=== PATIENT | male | born 1945 | race Caucasian/White ===

== ENCOUNTER 2017-07-01 11:00 | Inpatient (IN) ==
[2017-07-01] MEDS ORDERED: MAGNESIUM SULF RIDER 4 GM in PREMIX 1 EACH IV PRN (13:56)
[2017-07-01] MEDS ORDERED: DOCUSATE SODIUM 100 MG CAPSULE PO PRN (13:56)
[2017-07-01] MEDS ORDERED: ONDANSETRON 4 MG/2 ML VIAL IV PRN (13:56)
[2017-07-01] MEDS ORDERED: MAGNESIUM SULF RIDER 2 GM in PREMIX 1 EACH IV PRN (13:56)
[2017-07-01] MEDS ORDERED: ZALEPLON 5 MG CAPSULE PO PRN (13:56)
[2017-07-01] MEDS ORDERED: ACETAMINOPHEN 325 MG TABLET PO PRN (13:56)
--- NOTE | 2017-07-01 14:23 | EKG Report ---
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
[2017-07-01 14:34] LABS: Basophils # 0.1 10*3/uL (0.0-0.2); Basophils % 0.7 % (0.0-0.8); Eosinophils # 0.1 10*3/uL (0.0-0.87); Eosinophils % 1.9 % (0.00-10.9); Hematocrit 48.9 VOL% (42.0-52.0); Hemoglobin 16.6 GM/DL (14.0-18.0); Immature Granulocytes % 0.6 %; Immature Granulocytes Absolute 0.04 #; Lymphocytes # 1.8 10*3/uL (1.4-4.0); Lymphocytes % 25.1 % (21.2-54.2); Mean Corpuscular HGB Conc 33.9 GM/DL (32-36); Mean Corpuscular Hemoglobin 31 PG (27-34); Mean Corpuscular Volume 92.6 FL (87-102); Mean Platelet Volume 9.4 FL (9.6-12.0); Monocytes # 0.9 10*3/uL (0.11-0.8); Monocytes % 12.1 % (1.7-12.7); Neutrophils # 4.2 10*3/uL (1.4-7.4); Neutrophils % 59.6 % (38.7-73.9); Platelet Count 234 T/CUMM (130-400); Red Blood Count 5.28 MC/CUMM (3.8-5.5); Red Cell Distribution Width 12.8 % (9.3-17.3)
[2017-07-01] MEDS: PANTOPRAZOLE 40 MG TABLET PO SCH (14:43)
[2017-07-01 15:03] LABS: Troponin I Only 0.054 NG/ML (0.00-0.045)
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
--- NOTE | 2017-07-01 15:13 | XRay Report ---
XR chest 1V portable Indication: Shortness of breath. Chest one view: Comparison 08/28/2016. Chronic interstitial scarring of the lateral left midlung and left lung base, as well as some degree of scarring of the right lung base appears unchanged. Lung volumes remain quite low. No new infiltrates are seen. Borderline cardiomegaly and tortuous thoracic aorta are stable as well. Impression: No acute cardiopulmonary disease when compared to 08/28/2016. Multiple chronic changes detailed above. Continued pulmonary hypoinflation. PROCEDURE INTERPRETED AT [facility] DEPARTMENT OF RADIOLOGY Final Report Signed by: Med Estrella M.D.
[2017-07-01 15:15] LABS: Calcium 9.7 MG/DL (8.5-10.1); Magnesium 2.3 MG/DL (1.8-2.4); Osmolality,Calculated 281.4 MOS/KG (273-304); Potassium 5.2 MMOL/L (3.5-5.1)
[2017-07-01] MEDS ORDERED: NITROGLYCERIN SL 0.4 MG TABLET SL PRN (15:22)
[2017-07-01] MEDS ORDERED: ENOXAPARIN 40 MG/0.4 ML SYRINGE SUBCUT SCH (16:00)
[2017-07-01] MEDS ORDERED: SOTALOL 80 MG TABLET PO ONE (16:09)
[2017-07-01 16:37] LABS: Partial Thromboplastin Time 30.8 SECS (0-40)
[2017-07-01] MEDS: INSULIN REGULAR 100 UNIT/ML SUBCUT SCH ×2 (17:19→21:02)
[2017-07-01] MEDS ORDERED: PRAVASTATIN 20 MG TABLET PO SCH (21:00)
[2017-07-01] MEDS ORDERED: SOTALOL 80 MG TABLET PO SCH (21:00)
[2017-07-01] MEDS: SOTALOL 80 MG TABLET PO SCH (21:02)
[2017-07-01] MEDS: GLIMEPIRIDE 4 MG TABLET PO SCH (21:02)
[2017-07-01 22:37] LABS: Troponin I Only 0.045 NG/ML (0.00-0.045)
[2017-07-02 05:28] LABS: Basophils # 0.1 10*3/uL (0.0-0.2); Basophils % 0.8 % (0.0-0.8); Eosinophils # 0.3 10*3/uL (0.0-0.87); Eosinophils % 3.8 % (0.00-10.9); Hematocrit 46.3 VOL% (42.0-52.0); Hemoglobin 15.6 GM/DL (14.0-18.0); Immature Granulocytes % 0.7 %; Immature Granulocytes Absolute 0.05 #; Lymphocytes # 1.9 10*3/uL (1.4-4.0); Lymphocytes % 25.2 % (21.2-54.2); Mean Corpuscular HGB Conc 33.7 GM/DL (32-36); Mean Corpuscular Hemoglobin 32 PG (27-34); Mean Corpuscular Volume 94.1 FL (87-102); Mean Platelet Volume 9.8 FL (9.6-12.0); Monocytes # 1.1 10*3/uL (0.11-0.8); Monocytes % 14.2 % (1.7-12.7); Neutrophils # 4.1 10*3/uL (1.4-7.4); Neutrophils % 55.3 % (38.7-73.9); Platelet Count 221 T/CUMM (130-400); Red Blood Count 4.92 MC/CUMM (3.8-5.5); Red Cell Distribution Width 12.8 % (9.3-17.3); White Blood Count 7.4 T/CUMM (4-12)
[2017-07-02 05:54] LABS: Calcium 9.3 MG/DL (8.5-10.1); Magnesium 2.3 MG/DL (1.8-2.4); Osmolality,Calculated 279.4 MOS/KG (273-304); Potassium 5.1 MMOL/L (3.5-5.1); Risk Ratio 4.28; VLDL CHOLESTEROL 23.2 MG/DL
--- NOTE | 2017-07-02 07:24 | EKG Report ---
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
[2017-07-02] MEDS ORDERED: ASPIRIN CHEW 81 MG TABLET PO ONE (08:13)
--- NOTE | 2017-07-02 08:24 | Cardiology Progress Note ---
Assessment and Plan (1) Atrial fibrillation with rapid ventricular response Status: Acute Assessment and plan: SEE PLAN OF CARE LISTED BELOW. Current Visit: Yes (2) Chest pain Status: Acute Assessment and plan: SEE PLAN OF CARE LISTED BELOW. Current Visit: Yes (3) Obesity Status: Chronic Assessment and plan: SEE PLAN OF CARE LISTED BELOW. Current Visit: Yes Qualifiers: Body mass index: BMI 40.0-44.9 (4) Coronary artery disease Status: Chronic Assessment and plan: SEE PLAN OF CARE LISTED BELOW. Current Visit: Yes (5) History of LA (myocardial infarction) Status: Chronic Assessment and plan: SEE PLAN OF CARE LISTED BELOW. Current Visit: Yes (6) Chronic anticoagulation Status: Chronic Assessment and plan: SEE PLAN OF CARE LISTED BELOW. Current Visit: Yes (7) Paroxysmal a-fib Status: Chronic Assessment and plan: SEE PLAN OF CARE LISTED BELOW. Current Visit: Yes (8) Diabetes mellitus Status: Chronic Assessment and plan: SEE PLAN OF CARE LISTED BELOW. Current Visit: Yes (9) Dyslipidemia Status: Chronic Assessment and plan: SEE PLAN OF CARE LISTED BELOW. Current Visit: Yes (10) Obstructive sleep apnea Status: Chronic Assessment and plan: SEE PLAN OF CARE LISTED BELOW. 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 Merida Mr. Boggs is a 72 year old male with known history of coronary artery disease, routinely followed by Dr. Merida. Patient has cardiac risk factors significant for diabetes, hypertension, dyslipidemia, known history of CAD, obesity, age and sedentary lifestyle. Past medical history includes: Paroxysmal atrial fibrillation (chronically anticoagulated with Eliquis), obstructive sleep apnea (wears CPAP nightly), neuropathy and LA. Patient is a lifetime non-smoker. No significant family history of coronary artery disease. Patient has history of previous myocardial infarction. Most recent heart catheterization was performed October 2011. At that time, Dr. Merida attempted PCI to proximal diagonal stenosis. However, this was unsuccessful. October 2011 he was status post PCI to proximal proximal RCA. At that time, he was noted to have normal left ventricular size and function. Most recent cardiac stress test was performed December 2014. Patient's most recent echocardiogram was performed August 2016. At that time, he is noted to have normal LV systolic function with ejection fraction 55%. Moderate TR. Pulmonary artery pressure 45-50 mmHg. No pericardial effusion. Patient was last seen in the cardiology clinic June 29, 2017. At that time, he was complaining of intermittent episodes of chest discomfort. He was scheduled for first available cardiac stress testing. This has not yet been performed. Patient was directly admitted from Dr. Browning office at [facility] for atrial fibrillation. JULY 02, 2017 UPDATE Patient was seen and examined on the telemetry unit. He has done well overnight. His first set of cardiac biomarkers trivial. Last 2 sets negative. He is without complaints of chest pain, heaviness and tightness. He has converted back to normal sinus rhythm overnight. Vital signs stable overnight. Labs reviewed and are overall stable. Patient has been having intermittent episodes of chest pain, worsening dyspnea on exertion and easy fatigability. Stress test and heart catheterization were offered to patient. He and his both opted for heart catheterization. Patient was kept n.p.o. after midnight. After discussing with Dr. Linton, patient will be scheduled for heart catheterization this morning. Risk and benefits have been reviewed with the patient. He and his both agree to proceed. I have discussed with Dr. Linton. Further plan and recommendations to follow. ASSESSMENT/PLAN: 1. ATRIAL FIBRILLATION WITH RAPID VENTRICULAR RESPONSE - Patient has history of paroxysmal atrial fibrillation. Sotalol was increased yesterday and patient has now converted back to normal sinus rhythm. He is chronically anticoagulated with Eliquis. This is on hold for heart catheterization today. We will continue to monitor him on telemetry. 2. CHEST PAIN - Patient has been having intermittent episodes of chest pain, worsening dyspnea on exertion and easy fatigability. Patient was offered both stress test and heart catheterization. He and his both opted for heart catheterization. Risk and benefits of this procedure were reviewed with the patient. He and his are both agreeable to proceed. This will be scheduled for later today. He will be kept n.p.o. Further plan and addendum to follow per Dr. Linton. 3. HISTORY OF CAD, STATUS POST LA WITH PCI TO RCA 2010 - Patient underwent heart catheterization August 2011 and received PCI to proximal RCA. At that time, he also had stenosis of diagonal branch. He was taken for repeat catheterization October 2011. However, PCI to diagonal branch was unsuccessful. Medical management was initiated. Continue beta-blockade, aspirin, nitrates and lipid-lowering agent. 4. HYPERLIPIDEMIA - Lipid panel reviewed. LDL not at goal. I will change patient to high intensity statin. 5. CHRONIC ANTICOAGULATION - Chronically anticoagulated with Eliquis. This is being held for heart catheterization. 6. DIABETES - Sliding scale insulin. Accu-Cheks before meals and at bedtime. 7. OBSTRUCTIVE SLEEP APNEA - CPAP nightly. 8. OBESITY - Encouraged weight loss per caloric restriction and regular exercise. Exam (Progress Note) - Constitutional Vitals: Period Temp Pulse Resp BP Sys/Nunes Pulse Ox Last 24 Hr 97.4 F-98.4 F 60-113 18-20 123-138/60-77 93-96 Exam: General: Appears well with no apparent distress. Pleasant and cooperative. Appears comfortable. HEENT: PERRL, normocephalic, atraumatic. Mucous membranes moist. No jaundice noted. Conjunctiva moist and clear, sclerae anicteric Neck: No JVD/HJR, no thyromegaly or lymphadenopathy noted. No carotid bruit appreciated Cardiac: Regular rate and rhythm. No murmur rub or gallop. Lungs: Clear to auscultation without accessory muscle use to assist the respiratory pattern. Not requiring oxygen. Abdomen: Soft, bowel sounds normoactive. Nontender and nondistended. No abdominal bruit or thrill noted. No masses noted. Extremities: No clubbing, cyanosis noted. 1+ bilateral lower extremity edema. Upper extremity pulses 2+. Lower extremity pulses 2+. Capillary refill less than 3 seconds. Skin: No unusual lesions or rashes. No skin breakdown appreciated. Neuro: Awake, alert and oriented 3. Moves all extremities well without hemiparesis or paralysis. No essential tremor is appreciated. Result/EKG - Labs CBC & BMP: 07/02/17 04:36 07/02/17 04:36 Lab Results: I have reviewed the past 24 hour labs Labs: Laboratory Results - last 24 hr 07/01/17 07/01/17 07/01/17 14:22 14:26 14:26 WBC RBC Hgb Hct MCV MCH MCHC RDW Plt Count MPV Neut % (Auto) Lymph % (Auto) [place] % (Auto) Eos % (Auto) Baso % (Auto) Neut # (Auto) Lymph # (Auto) [place] # (Auto) Eos # (Auto) Baso # (Auto) Immature Gran % Nucleated RBC % Immature Gran # Nucleated RBCs # Immature Plt Fraction INR 1.0 PT Patient/Control Mix 11.0 Circ Anticoag PTT 30.8 Sodium Potassium Chloride Carbon Dioxide Anion Gap BUN Creatinine GFR Calculation BUN/Creatinine Ratio Glucose POC Glucose Calculated Osmolality Calcium Magnesium Total Creatine Kinase 105 CK-MB (CK-2) 3.7 H Troponin I 0.054 H B-Natriuretic Peptide 231 H Triglycerides Cholesterol LDL Cholesterol VLDL Cholesterol HDL Cholesterol Heart Disease Risk Ratio 07/01/17 07/01/17 07/01/17 14:27 14:27 16:46 WBC 7.0 RBC 5.28 Hgb 16.6 Hct 48.9 MCV 92.6 MCH 31 MCHC 33.9 RDW 12.8 Plt Count 234 MPV 9.4 L Neut % (Auto) 59.6 Lymph % (Auto) 25.1 [place] % (Auto) 12.1 Eos % (Auto) 1.9 Baso % (Auto) 0.7 Neut # (Auto) 4.2 Lymph # (Auto) 1.8 [place] # (Auto) 0.9 H Eos # (Auto) 0.1 Baso # (Auto) 0.1 Immature Gran % 0.6 Nucleated RBC % 0.0 Immature Gran # 0.04 Nucleated RBCs # 0.00 Immature Plt Fraction 0.0 INR PT Patient/Control Mix Circ Anticoag PTT Sodium 140 Potassium 5.2 H Chloride 103 Carbon Dioxide 30 Anion Gap 12.2 BUN 19 H Creatinine 1.10 GFR Calculation 94 BUN/Creatinine Ratio 17.00 Glucose 123 H POC Glucose 91 Calculated Osmolality 281.4 Calcium 9.7 Magnesium 2.3 Total Creatine Kinase CK-MB (CK-2) Troponin I B-Natriuretic Peptide Triglycerides Cholesterol LDL Cholesterol VLDL Cholesterol HDL Cholesterol Heart Disease Risk Ratio 07/01/17 07/01/17 07/02/17 19:53 22:07 04:36 WBC 7.4 RBC 4.92 Hgb 15.6 Hct 46.3 MCV 94.1 MCH 32 MCHC 33.7 RDW 12.8 Plt Count 221 MPV 9.8 Neut % (Auto) 55.3 Lymph % (Auto) 25.2 [place] % (Auto) 14.2 H Eos % (Auto) 3.8 Baso % (Auto) 0.8 Neut # (Auto) 4.1 Lymph # (Auto) 1.9 [place] # (Auto) 1.1 H Eos # (Auto) 0.3 Baso # (Auto) 0.1 Immature Gran % 0.7 Nucleated RBC % 0.0 Immature Gran # 0.05 Nucleated RBCs # 0.00 Immature Plt Fraction 0.0 INR PT Patient/Control Mix Circ Anticoag PTT Sodium Potassium Chloride Carbon Dioxide Anion Gap BUN Creatinine GFR Calculation BUN/Creatinine Ratio Glucose POC Glucose 224 H Calculated Osmolality Calcium Magnesium Total Creatine Kinase 79 D CK-MB (CK-2) 2.7 Troponin I 0.045 B-Natriuretic Peptide Triglycerides Cholesterol LDL Cholesterol VLDL Cholesterol HDL Cholesterol Heart Disease Risk Ratio 07/02/17 07/02/17 04:36 04:36 WBC RBC Hgb Hct MCV MCH MCHC RDW Plt Count MPV Neut % (Auto) Lymph % (Auto) [place] % (Auto) Eos % (Auto) Baso % (Auto) Neut # (Auto) Lymph # (Auto) [place] # (Auto) Eos # (Auto) Baso # (Auto) Immature Gran % Nucleated RBC % Immature Gran # Nucleated RBCs # Immature Plt Fraction INR PT Patient/Control Mix Circ Anticoag PTT Sodium 140 Potassium 5.1 Chloride 104 Carbon Dioxide 31 Anion Gap 10.1 BUN 17 Creatinine 0.90 GFR Calculation 120 BUN/Creatinine Ratio 18.00 Glucose 82 POC Glucose Calculated Osmolality 279.4 Calcium 9.3 Magnesium 2.3 Total Creatine Kinase 79 CK-MB (CK-2) 2.5 Troponin I 0.040 B-Natriuretic Peptide Triglycerides 116 Cholesterol 184 LDL Cholesterol 114.0 VLDL Cholesterol 23.2 HDL Cholesterol 43 Heart Disease Risk Ratio 4.28
[2017-07-02] MEDS ORDERED: DIAZEPAM 5 MG TABLET PO ONE (08:25)
[2017-07-02] MEDS ORDERED: POTASSIUM CHLORIDE RIDER 10 MEQ in PREMIX 1 EACH IV PRN (08:25)
[2017-07-02] MEDS ORDERED: MAGNESIUM SULF RIDER 2 GM in PREMIX 1 EACH IV PRN (08:25)
[2017-07-02] MEDS ORDERED: diphenhydrAMINE CAP 25 MG CAPSULE PO ONE (08:25)
[2017-07-02] MEDS: amLODIPine 5 MG TABLET PO SCH (08:56)
[2017-07-02] MEDS: BENAZEPRIL 10 MG TABLET PO SCH (08:56)
[2017-07-02] MEDS: PANTOPRAZOLE 40 MG TABLET PO SCH (08:56)
[2017-07-02] MEDS: SOTALOL 80 MG TABLET PO SCH ×2 (08:56→21:55)
[2017-07-02] MEDS ORDERED: ASPIRIN EC 81 MG TABLET PO SCH ×2 (09:00)
[2017-07-02] MEDS: INSULIN REGULAR 100 UNIT/ML SUBCUT SCH ×4 (09:29→23:09)
[2017-07-02] MEDS ORDERED: VERAPAMIL 5 MG/2 ML VIAL ONE (09:58)
[2017-07-02] MEDS ORDERED: HEPARIN/NACL 0.9% 2 UNITS/ML 0 ML IV ONE (09:58)
[2017-07-02] MEDS ORDERED: LIDOCAINE 1% 20 ML VIAL ONE (09:58)
[2017-07-02] MEDS ORDERED: NITROGLYCERIN DRIP 50 MG/250 ML BOTTLE IV ONE (09:58)
[2017-07-02] MEDS ORDERED: MIDAZOLAM 2 MG/2 ML VIAL ONE (10:14)
[2017-07-02] MEDS ORDERED: HYDROmorphone 2 MG/1 ML VIAL ONE (10:14)
[2017-07-02] MEDS ORDERED: ENOXAPARIN 60 MG/0.6 ML SYRINGE ONE (10:28)
[2017-07-02] MEDS ORDERED: ENOXAPARIN 30 MG/0.3 ML SYRINGE ONE ×2 (10:59→12:10)
[2017-07-02] MEDS ORDERED: TICAGRELOR 90 MG TABLET ONE (11:00)
--- NOTE | 2017-07-02 12:57 | Cardiac Catheterization ---
Date of Procedure:: 07/02/17 Post-op diagnosis: same Procedure: Procedure performed: 1. Coronary angiography 2. Angioplasty of distal RCA with 4.0 x 8 noncompliant balloon 3. Right femoral arteriotomy closed with Angio-Seal device Brief clinical summary: Mr. Boggs 72-year-old with known coronary artery disease and previous PCI who presented with ACS with negative troponin. Description of procedure: After obtaining informed consent the patient transferred to the catheterization lab, and the right wrist was prepped and draped in the usual sterile fashion. Next a short 6 [place] sheath was placed in the right radial artery using the Seldinger technique after the patient received IV sedation, and local anesthetic. I then injected a vasodilator cocktail into the sheath. We gave her 0.5 mg per kilogram of intravenous Lovenox prior to the procedure. Next a 6 [place] TIG catheter was advanced but would not engage the left coronary artery due to severe tortuosity. Had to use a long J-wire to swap out for a JL 3.5 catheter. This did engage the vessel with some difficulty. After which angiogram was performed in multiple views. I then exchanged over wire for a JR 3.5 catheter with some difficulty was able to engage the right coronary artery. Angiograms were taken multiple views. The catheter was removed over a J-wire. Percutaneous coronary mention was then performed as described below. At the end the procedure, hemostasis was obtained at the right femoral site with an Angio-Seal device with no residual bleeding. Next hemostasis was obtained at the right radial site with a large TR band, using "patent hemostasis" technique. The patient was transferred from the catheterization lab in good condition. Percutaneous coronary intervention: The patient out of the [employer] Football[employer] on aspirin. He was given additional 0.2 mg/kg of IV Lovenox before the intervention. He is given additional 0.1 mg/kg of IV Lovenox about an hour and a half later. An AL to guiding catheter was advanced and appeared that it would fit the vessel well, however with just gentle torquing the proximal part of the guiding catheter "kinked". I then removed it over a J-wire with some difficulty. I then did change to a hockey-stick to guiding catheter which fit the vessel well. Next a run-through wire was advanced and with some difficulty advanced into the distal posterior lateral. I then tried multiple wires to try to advance a wire into the PDA given had an ostial lesion. The vessel is very tortuous making this all very difficult. I failed with a PT Graphix as the tip would "curly" prior to getting to the vessel. I tried to use a 2.5 over the wire balloon this would not advance to the end of the sheath so I abandoned that. Next I tried another run through wire as well as a pro-water and a Fielder FC wire and was unable to advance into the PDA. Therefore decided to address the critical distal right coronary lesion and treat the ostial PDA lesion medically. Due to insufficient support I advanced a Haodf.coma catheter for support. I advanced a 3.0 x 20 balloon but it would not reach the lesion due to proximal tortuosity. Therefore changed to 3.0 x 15 balloon with great difficulty I was able to advance into the lesion and dilated to above nominal pressures. There was residual 60-70% stenosis. I then advanced a 4.0 Synergy stent but would not even begin to cross into the tortuous mid RCA. Therefore it was removed. Next I advanced a 4.0 x 8 balloon with great difficulty I was able to advance it to the area of disease and dilated to nominal pressures. Appeared that there was still residual stenosis greater than 30%. Therefore, I dilated to above nominal pressures to about 4.15 mm. There is a good angiographic result with about 30% residual stenosis. Coronary angiography: Left main coronary arteries normal developed and free disease. The vessels are larger overall. Left anterior descending artery is a large conduit with a 50% smooth discrete proximal stenosis. There is a large first septal with a 90% ostial stenosis (1.5 m vessel). There is a large an average diagonal branch with 60% proximal stenosis (site of remote angioplasty and dissection). There is a smaller second diagonal branch. LAD terminates early but right before the apex. Circumflex vessel is somewhat diminutive with only one reasonable vessel which is small than average in caliber and has a 60% ostial stenosis. The right coronary is extremely large and dominant. It is very tortuous with moderate calcification diffusely. There is a 95% discrete distal RCA stenosis before the takeoff of a long large an average PDA branch which has a ostial discrete 95% stenosis. There is also a large posterior lateral branch. Impression: 1. Right dominant system (very large, tortuous right coronary artery) 2. Coronary artery disease as detailed above including but not limited to: A. 50% smooth discrete proximal LAD stenosis with 60% proximal first diagonal stenosis (large branch) B. 60% ostial OM1 stenosis (thinner than average branch) C. Discrete 95% distal RCA stenosis as well as 95% ostial PDA stenosis 3. Status post angioplasty of distal RCA with 4.0 x 8 balloon (is dilated to 4.15 with 30% residual stenosis) Recommendation discussion: I would not recommend radial access of Mr. Boggs is a heart catheterization again. His right subclavian is very tortuous common intervention will be very difficult. I believe in a L2 catheter would have provided good support but it kinked during the catheterization. This could be tried again or in AR-2. The hockey-stick to fit the vessel well but support was moderate and the vessel is quite tortuous. He will continue on aspirin and Brilinta for now. He will need to avoid squatting strain lifting for the next week. We will continue IV fluids to try to reduce his risk for CALEB. His PDA will be treated medically as I was unable to cross it (difficult to visualize, and the ostium and the vessel is quite tortuous). Anesthesia: minimal conscious sedation Surgeon / Physician: [facility] Manager: other Estimated blood loss: minimal Specimens: none sent Condition: stable Disposition: floor - Medications / Follow-up
--- NOTE | 2017-07-02 13:26 | EKG Report ---
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
[2017-07-02 14:05] LABS: Troponin I Only 0.045 NG/ML (0.00-0.045)
[2017-07-02] MEDS: ASCORBIC ACID 500 MG TABLET PO SCH (15:48)
[2017-07-02] MEDS: DULoxetine 30 MG CAPSULE PO SCH (15:48)
[2017-07-02] MEDS: SODIUM CHLORIDE 0.45% 1,000 ML IV SCH (15:48)
[2017-07-02] MEDS: POTASSIUM GLUCONATE 500 MG TABLET PO SCH (15:49)
[2017-07-02] MEDS: GLIMEPIRIDE 4 MG TABLET PO SCH ×2 (16:21→21:54)
[2017-07-02] MEDS: TICAGRELOR 90 MG TABLET PO SCH (21:54)
[2017-07-02] MEDS: ROSUVASTATIN 20 MG TABLET PO SCH (21:54)
[2017-07-03] MEDS: SODIUM CHLORIDE 0.45% 1,000 ML IV SCH ×2 (03:34→06:39)
[2017-07-03 05:54] LABS: Basophils % 0.4 % (0.0-0.8); Eosinophils # 0.2 10*3/uL (0.0-0.87); Eosinophils % 2.1 % (0.00-10.9); Hematocrit 45.2 VOL% (42.0-52.0); Hemoglobin 15.2 GM/DL (14.0-18.0); Immature Granulocytes % 0.5 %; Immature Granulocytes Absolute 0.05 #; Lymphocytes # 1.3 10*3/uL (1.4-4.0); Lymphocytes % 13.6 % (21.2-54.2); Mean Corpuscular HGB Conc 33.6 GM/DL (32-36); Mean Corpuscular Hemoglobin 31 PG (27-34); Mean Corpuscular Volume 92.6 FL (87-102); Mean Platelet Volume 9.7 FL (9.6-12.0); Monocytes # 1.3 10*3/uL (0.11-0.8); Monocytes % 13.7 % (1.7-12.7); Neutrophils # 6.6 10*3/uL (1.4-7.4); Neutrophils % 69.7 % (38.7-73.9); Platelet Count 209 T/CUMM (130-400); Red Blood Count 4.88 MC/CUMM (3.8-5.5); Red Cell Distribution Width 12.7 % (9.3-17.3); White Blood Count 9.4 T/CUMM (4-12)
[2017-07-03 06:20] LABS: Calcium 9.3 MG/DL (8.5-10.1); Magnesium 2.2 MG/DL (1.8-2.4); Osmolality,Calculated 275.5 MOS/KG (273-304); Potassium 4.1 MMOL/L (3.5-5.1)
[2017-07-03 06:26] LABS: CKMB % 11.5 %
[2017-07-03 06:30] LABS: Troponin I Only 9.69 NG/ML (0.00-0.045)
--- NOTE | 2017-07-03 07:50 | EKG Report ---
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
[2017-07-03] MEDS: SOTALOL 80 MG TABLET PO SCH ×2 (09:08→21:40)
[2017-07-03] MEDS: DULoxetine 30 MG CAPSULE PO SCH (09:09)
[2017-07-03] MEDS: TICAGRELOR 90 MG TABLET PO SCH ×2 (09:09→21:47)
[2017-07-03] MEDS: ASPIRIN EC 81 MG TABLET PO SCH (09:09)
[2017-07-03] MEDS: PANTOPRAZOLE 40 MG TABLET PO SCH (09:09)
[2017-07-03] MEDS: ASCORBIC ACID 500 MG TABLET PO SCH (09:09)
[2017-07-03] MEDS: BENAZEPRIL 10 MG TABLET PO SCH (09:09)
[2017-07-03] MEDS: GLIMEPIRIDE 4 MG TABLET PO SCH ×2 (09:09→21:41)
[2017-07-03] MEDS: amLODIPine 5 MG TABLET PO SCH (09:09)
[2017-07-03] MEDS: INSULIN REGULAR 100 UNIT/ML SUBCUT SCH ×4 (09:10→21:42)
[2017-07-03] MEDS: POTASSIUM GLUCONATE 500 MG TABLET PO SCH (09:10)
[2017-07-03 10:06] LABS: Troponin I Only 10.3 NG/ML (0.00-0.045)
--- NOTE | 2017-07-03 11:24 | Cardiology Progress Note ---
Assessment and Plan (1) Atrial fibrillation with rapid ventricular response Status: Acute Assessment and plan: SEE PLAN OF CARE LISTED BELOW. Current Visit: Yes (2) Chest pain Status: Acute Assessment and plan: SEE PLAN OF CARE LISTED BELOW. Current Visit: Yes (3) Obesity Status: Chronic Assessment and plan: SEE PLAN OF CARE LISTED BELOW. Current Visit: Yes Qualifiers: Body mass index: BMI 40.0-44.9 (4) Coronary artery disease Status: Chronic Assessment and plan: SEE PLAN OF CARE LISTED BELOW. Current Visit: Yes (5) History of TX (myocardial infarction) Status: Chronic Assessment and plan: SEE PLAN OF CARE LISTED BELOW. Current Visit: Yes (6) Chronic anticoagulation Status: Chronic Assessment and plan: SEE PLAN OF CARE LISTED BELOW. Current Visit: Yes (7) Paroxysmal a-fib Status: Chronic Assessment and plan: SEE PLAN OF CARE LISTED BELOW. Current Visit: Yes (8) Diabetes mellitus Status: Chronic Assessment and plan: SEE PLAN OF CARE LISTED BELOW. Current Visit: Yes (9) Dyslipidemia Status: Chronic Assessment and plan: SEE PLAN OF CARE LISTED BELOW. Current Visit: Yes (10) Obstructive sleep apnea Status: Chronic Assessment and plan: SEE PLAN OF CARE LISTED BELOW. Current Visit: No Cardiology - PN: Subj Interval history: SMOKE TESTER: Dr. Merida SUMMARY Mr. Boggs is a 72 year old male with known history of coronary artery disease, routinely followed by Dr. Merida. Patient has cardiac risk factors significant for diabetes, hypertension, dyslipidemia, known history of CAD, obesity, age and sedentary lifestyle. Past medical history includes: Paroxysmal atrial fibrillation (chronically anticoagulated with Eliquis), obstructive sleep apnea (wears CPAP nightly), neuropathy and TX. Patient is a lifetime non-smoker. No significant family history of coronary artery disease. Patient has history of previous myocardial infarction. Most recent heart catheterization was performed October 2011. At that time, Dr. Merida attempted PCI to proximal diagonal stenosis. However, this was unsuccessful. October 2011 he was status post PCI to proximal proximal RCA. At that time, he was noted to have normal left ventricular size and function. Most recent cardiac stress test was performed December 2014. Patient's most recent echocardiogram was performed August 2016. At that time, he is noted to have normal LV systolic function with ejection fraction 55%. Moderate TR. Pulmonary artery pressure 45-50 mmHg. No pericardial effusion. Patient was last seen in the cardiology clinic June 29, 2017. At that time, he was complaining of intermittent episodes of chest discomfort. He was scheduled for first available cardiac stress testing. This has not yet been performed. Patient was directly [place]. [place] [facility] [place] [facility]. Patient was having complaints of intermittent chest pain, worsening dyspnea on exertion and easy fatigability. It was decided that patient would best benefit from heart catheterization as he does have history of significant coronary artery disease. He underwent heart catheterization per Dr. Bello July 02, 2017 with the following impressions noted: IMPRESSION: 1. Right dominant system (very large, tortuous right coronary artery) 2. Coronary artery disease as detailed above including but not limited to: A. 50% smooth discrete proximal LAD stenosis with 60% proximal first diagonal stenosis (large branch) B. 60% ostial OM1 stenosis (thinner than average branch) C. Discrete 95% distal RCA stenosis as well as 95% ostial PDA stenosis 3. Status post angioplasty of distal RCA with 4.0 x 8 balloon (is dilated to 4.15 with 30% residual stenosis) RECOMMENDATION DISCUSSION: He will continue on aspirin and Brilinta for now. He will need to avoid squatting strain lifting for the next week. We will continue IV fluids to try to reduce his risk for CALEB. His PDA will be treated medically as I was unable to cross it (difficult to visualize, and the ostium and the vessel is quite tortuous). JULY 03, 2017 UPDATE Patient was seen and examined on the telemetry unit. He has done well post catheterization. He is without complaints of chest pain, heaviness and tightness. Right groin is soft without bleeding, hematoma and bruit. Distal pulses 2+. Patient has ambulated to the restroom without difficulty. Right groin has remained stable post ambulation. His groin precautions have been reviewed with the patient. He verbalized understanding. Unfortunately, it appears that patient had a ree-procedure myocardial infarction as his troponin nae to 10.3 overnight. No changes on EKG. I discussed this case with Dr. hopper and we feel that it is best that patient stays overnight in order to observe for arrhythmias and other complications. I will add Imdur to patient's medication regimen. Continue dual antiplatelet therapy. Labs have been reviewed. I have reviewed classroom monitor. No further atrial fibrillation noted after increasing sotalol. We will continue to monitor QT EKG. Hopeful for discharge home tomorrow. I have discussed with Dr. Linton regarding the need for all 3 blood thinners at discharge (aspirin, Brilinta and Eliquis). At this point, we will continue dual antiplatelet therapy. May make further changes prior to discharge. He will be given a follow-up appoint with Dr. Merida in 2 weeks with EKG. ASSESSMENT/PLAN: 1. ATRIAL FIBRILLATION WITH RAPID VENTRICULAR RESPONSE - Patient has history of paroxysmal atrial fibrillation. Sotalol was increased this hospitalization and patient has now converted back to normal sinus rhythm. Patient has had no recurrent atrial fibrillation. QT stable with sotalol increase. We will continue to monitor EKGs. He is chronically anticoagulated with Eliquis. We will continue to hold this post catheterization. I have discussed with Dr. Linton regarding the need for all 3 blood thinners at discharge (aspirin, Brilinta and Eliquis). At this point, we will continue dual antiplatelet therapy. May make further changes prior to discharge. 2. CHEST PAIN, STATUS POST PTCA TO RCA - Patient is now status post heart catheterization. Received PTCA to RCA. Continue with dual antibiotic therapy. He does appear that patient most likely had. Procedure myocardial infarction as his troponin nae to 10.3 overnight. We will monitor patient overnight for any complications such as arrhythmias. I have added Imdur to patient's medication regimen. Continue GENI inhibitor, lipid-lowering agent and beta blockade. Further recommendations to follow per Dr. Linton. 3. HISTORY OF CAD, STATUS POST TX WITH PCI TO RCA 2010 - Patient underwent heart catheterization August 2011 and received PCI to proximal RCA. At that time, he also had stenosis of diagonal branch. He was taken for repeat catheterization October 2011. However, PCI to diagonal branch was unsuccessful. Medical management was initiated. Continue beta-blockade, aspirin, nitrates and lipid-lowering agent. 4. HYPERLIPIDEMIA - Continue lipid-lowering agent. Will need repeat lipid panel in 4-6 weeks as he was changed to high intensity statin this hospitalization. 5. CHRONIC ANTICOAGULATION - Chronically anticoagulated with Eliquis. Continue to hold for today. 6. DIABETES - Sliding scale insulin. Accu-Cheks before meals and at bedtime. 7. OBSTRUCTIVE SLEEP APNEA - CPAP nightly. 8. OBESITY - Encouraged weight loss per caloric restriction and regular exercise. Exam (Progress Note) - Constitutional Vitals: Period Temp Pulse Resp BP Sys/Nunes Pulse Ox Last 24 Hr 97.0 F-98.4 F 50-69 18-20 117-164/63-85 89-98 Exam: General: Appears well with no apparent distress. Pleasant and cooperative. Appears comfortable. HEENT: PERRL, normocephalic, atraumatic. Mucous membranes moist. No jaundice noted. Conjunctiva moist and clear, sclerae anicteric Neck: No JVD/HJR, no thyromegaly or lymphadenopathy noted. No carotid bruit appreciated Cardiac: Regular rate and rhythm. No murmur rub or gallop. Lungs: Clear to auscultation without accessory muscle use to assist the respiratory pattern. Not requiring oxygen. Abdomen: Soft, bowel sounds normoactive. Nontender and nondistended. No abdominal bruit or thrill noted. No masses noted. Extremities: No clubbing, cyanosis noted. 1+ bilateral lower extremity edema. Upper extremity pulses 2+. Lower extremity pulses 2+. Capillary refill less than 3 seconds. Right groin soft without bleeding, hematoma and bruit. Distal pulses 2+. Skin: No unusual lesions or rashes. No skin breakdown appreciated. Neuro: Awake, alert and oriented 3. Moves all extremities well without hemiparesis or paralysis. No essential tremor is appreciated. Result/EKG - Labs CBC & BMP: 07/03/17 05:02 07/03/17 05:03 Lab Results: I have reviewed the past 24 hour labs Labs: Laboratory Results - last 24 hr 07/02/17 07/02/17 07/02/17 13:16 16:54 20:43 WBC RBC Hgb Hct MCV MCH MCHC RDW Plt Count MPV Neut % (Auto) Lymph % (Auto) [place] % (Auto) Eos % (Auto) Baso % (Auto) Neut # (Auto) Lymph # (Auto) [place] # (Auto) Eos # (Auto) Baso # (Auto) Immature Gran % Nucleated RBC % Immature Gran # Nucleated RBCs # Immature Plt Fraction Sodium Potassium Chloride Carbon Dioxide Anion Gap BUN Creatinine GFR Calculation BUN/Creatinine Ratio Glucose POC Glucose 113 H 117 H Calculated Osmolality Calcium Magnesium Total Creatine Kinase 59 D CK-MB (CK-2) 2.0 CK and CKMB Interp Troponin I 0.045 07/03/17 07/03/17 07/03/17 05:02 05:02 05:03 WBC 9.4 RBC 4.88 Hgb 15.2 Hct 45.2 MCV 92.6 MCH 31 MCHC 33.6 RDW 12.7 Plt Count 209 MPV 9.7 Neut % (Auto) 69.7 Lymph % (Auto) 13.6 L [place] % (Auto) 13.7 H Eos % (Auto) 2.1 Baso % (Auto) 0.4 Neut # (Auto) 6.6 Lymph # (Auto) 1.3 L [place] # (Auto) 1.3 H Eos # (Auto) 0.2 Baso # (Auto) 0.0 Immature Gran % 0.5 Nucleated RBC % 0.0 Immature Gran # 0.05 Nucleated RBCs # 0.00 Immature Plt Fraction 0.0 Sodium 139 Potassium 4.1 Chloride 102 Carbon Dioxide 29 Anion Gap 12.1 BUN 15 Creatinine 0.70 GFR Calculation 133 BUN/Creatinine Ratio 21.00 H Glucose 71 L POC Glucose Calculated Osmolality 275.5 Calcium 9.3 Magnesium 2.2 Total Creatine Kinase 164 D CK-MB (CK-2) 18.8 H D CK and CKMB Interp 11.5 Troponin I 9.690 H D 07/03/17 07/03/17 07/03/17 07:57 07:59 08:21 WBC RBC Hgb Hct MCV MCH MCHC RDW Plt Count MPV Neut % (Auto) Lymph % (Auto) [place] % (Auto) Eos % (Auto) Baso % (Auto) Neut # (Auto) Lymph # (Auto) [place] # (Auto) Eos # (Auto) Baso # (Auto) Immature Gran % Nucleated RBC % Immature Gran # Nucleated RBCs # Immature Plt Fraction Sodium Potassium Chloride Carbon Dioxide Anion Gap BUN Creatinine GFR Calculation BUN/Creatinine Ratio Glucose POC Glucose < 20 L* 95 Calculated Osmolality Calcium Magnesium Total Creatine Kinase 189 CK-MB (CK-2) 17.1 H CK and CKMB Interp 9.0 Troponin I 10.300 H Specialty Discharge - Follow Up or Referrals Follow up with: Tyson Merida MD [Physician] - 2 Weeks (EKG)
[2017-07-03] MEDS: ISOSORBIDE MONONITRATE 30 MG TABLET PO SCH (11:56)
[2017-07-03 14:20] LABS: Free T4 (Free Thyroxine) 1.09 NG/DL (0.76-1.46); Thyroid Stimulating Hormone 1.51 uIU/ml (0.358-3.74)
[2017-07-03 16:07] LABS: CKMB % 6.9 %
[2017-07-03 16:08] LABS: Troponin I Only 10.1 NG/ML (0.00-0.045)
[2017-07-03] MEDS: ROSUVASTATIN 20 MG TABLET PO SCH (21:41)
[2017-07-04 00:20] LABS: CKMB % 4.6 %
[2017-07-04 00:23] LABS: Troponin I Only 8.28 NG/ML (0.00-0.045)
[2017-07-04 05:05] LABS: Basophils % 0.4 % (0.0-0.8); Eosinophils # 0.2 10*3/uL (0.0-0.87); Eosinophils % 2.3 % (0.00-10.9); Hematocrit 44.9 VOL% (42.0-52.0); Hemoglobin 15.2 GM/DL (14.0-18.0); Immature Granulocytes % 0.8 %; Immature Granulocytes Absolute 0.06 #; Lymphocytes # 1.3 10*3/uL (1.4-4.0); Lymphocytes % 16.6 % (21.2-54.2); Mean Corpuscular HGB Conc 33.9 GM/DL (32-36); Mean Corpuscular Hemoglobin 32 PG (27-34); Mean Platelet Volume 9.5 FL (9.6-12.0); Monocytes % 12.3 % (1.7-12.7); Neutrophils # 5.4 10*3/uL (1.4-7.4); Neutrophils % 67.6 % (38.7-73.9); Platelet Count 201 T/CUMM (130-400); Red Blood Count 4.83 MC/CUMM (3.8-5.5); Red Cell Distribution Width 12.7 % (9.3-17.3); White Blood Count 7.9 T/CUMM (4-12)
[2017-07-04 05:37] LABS: Calcium 9.2 MG/DL (8.5-10.1); Magnesium 2.3 MG/DL (1.8-2.4); Osmolality,Calculated 279.4 MOS/KG (273-304); Potassium 4.4 MMOL/L (3.5-5.1)
[2017-07-04 05:40] LABS: Albumin 3.4 G/DL (3.4-5.0); Bilirubin,Total 0.8 MG/DL (0.2-1.0); Calcium 9.3 MG/DL (8.5-10.1); Osmolality,Calculated 278.4 MOS/KG (273-304); Potassium 4.5 MMOL/L (3.5-5.1); Total Protein 6.7 G/DL (6.4-8.3)
--- NOTE | 2017-07-04 08:10 | EKG Report ---
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
[2017-07-04] MEDS: DULoxetine 30 MG CAPSULE PO SCH (08:24)
[2017-07-04] MEDS: ASPIRIN EC 81 MG TABLET PO SCH (08:25)
[2017-07-04] MEDS: amLODIPine 5 MG TABLET PO SCH (08:25)
[2017-07-04] MEDS: BENAZEPRIL 10 MG TABLET PO SCH (08:25)
[2017-07-04] MEDS: TICAGRELOR 90 MG TABLET PO SCH (08:25)
[2017-07-04] MEDS: ASCORBIC ACID 500 MG TABLET PO SCH (08:25)
[2017-07-04] MEDS: SOTALOL 80 MG TABLET PO SCH (08:25)
[2017-07-04] MEDS: ISOSORBIDE MONONITRATE 30 MG TABLET PO SCH (08:25)
[2017-07-04] MEDS: GLIMEPIRIDE 4 MG TABLET PO SCH (08:26)
[2017-07-04] MEDS: PANTOPRAZOLE 40 MG TABLET PO SCH (08:26)
[2017-07-04] MEDS: POTASSIUM GLUCONATE 500 MG TABLET PO SCH (08:26)
[2017-07-04] MEDS: INSULIN REGULAR 100 UNIT/ML SUBCUT SCH ×2 (08:26→11:50)
--- NOTE | 2017-07-04 11:34 | Discharge Summary ---
Hospital Course - Hospital Course Hospital Course: SOCIAL SERVICE ASSISTANT: Dr. Merida SUMMARY Mr. Boggs is a 72 year old male with known history of coronary artery disease, routinely followed by Dr. Merida. Patient has cardiac risk factors significant for diabetes, hypertension, dyslipidemia, known history of CAD, obesity, age and sedentary lifestyle. Past medical history includes: Paroxysmal atrial fibrillation (chronically anticoagulated with Eliquis), obstructive sleep apnea (wears CPAP nightly), neuropathy and AR. Patient is a lifetime non-smoker. No significant family history of coronary artery disease. Patient has history of previous myocardial infarction. Most recent heart catheterization was performed October 2011. At that time, Dr. Merida attempted PCI to proximal diagonal stenosis. However, this was unsuccessful. October 2011 he was status post PCI to proximal proximal RCA. At that time, he was noted to have normal left ventricular size and function. Most recent cardiac stress test was performed December 2014. Patient's most recent echocardiogram was performed August 2016. At that time, he is noted to have normal LV systolic function with ejection fraction 55%. Moderate TR. Pulmonary artery pressure 45-50 mmHg. No pericardial effusion. Patient was last seen in the cardiology clinic June 29, 2017. At that time, he was complaining of intermittent episodes of chest discomfort. He was scheduled for first available cardiac stress testing. This has not yet been performed. Patient was directly admitted from Dr. Browning office at [facility] for atrial fibrillation. Patient was having complaints of intermittent chest pain, worsening dyspnea on exertion and easy fatigability. It was decided that patient would best benefit from heart catheterization as he does have history of significant coronary artery disease. He underwent heart catheterization per Dr. Bello July 02, 2017 with the following impressions noted: IMPRESSION: 1. Right dominant system (very large, tortuous right coronary artery) 2. Coronary artery disease as detailed above including but not limited to: A. 50% smooth discrete proximal LAD stenosis with 60% proximal first diagonal stenosis (large branch) B. 60% ostial OM1 stenosis (thinner than average branch) C. Discrete 95% distal RCA stenosis as well as 95% ostial PDA stenosis 3. Status post angioplasty of distal RCA with 4.0 x 8 balloon (is dilated to 4.15 with 30% residual stenosis) RECOMMENDATION DISCUSSION: He will continue on aspirin and Brilinta for now. He will need to avoid squatting strain lifting for the next week. We will continue IV fluids to try to reduce his risk for CALEB. His PDA will be treated medically as I was unable to cross it (difficult to visualize, and the ostium and the vessel is quite tortuous). JULY 04, 2017: Overnight, troponin has decreased. Patient is anxious for release home and he is being discharged home in stable condition. Labs are stable as are his vital signs. Sotalol was initiated and patient remained in normal sinus rhythm. QTC this morning within normal limits. Patient will be sent home with aspirin and Brilinta for now. He will have an appointment to see Dr. Merida in approximately 2-3 weeks. At that time, may consider adding back his Eliquis versus continued dual antiplatelet therapy only. Having felt is met maximal medical therapy, patient is being discharged home in stable condition. Labs at Dr. Merida's office will include: BMP, magnesium, CBC, EKG. Discharge medications include the following: Aspirin 81 mg orally daily Brilinta 90 mg orally twice daily. Patient will be given a prescription card for Brilinta Amlodipine 5 mg orally daily Isosorbide mononitrate 1 p.o. daily Sotalol 120 mg orally twice daily Nitroglycerin sublingual as needed Benazepril 10 mg orally daily Ascorbic acid 1000 mg orally daily Crestor 40 mg orally each evening Patient will resume his noncardiac pre-admission medications. - Time spent with patient Time with patient DS: Greater than 30 minutes Diagnosis - Discharge Diagnosis (1) Atrial fibrillation with rapid ventricular response Status: Resolved (2) Diabetes mellitus Status: Chronic (3) Coronary artery disease Status: Chronic (4) Dyslipidemia Status: Chronic (5) Obstructive sleep apnea Status: Chronic (6) Chronic hypertension Status: Chronic (7) Obesity Status: Chronic (8) Chest pain Status: Resolved Specialty Discharge - Follow Up or Referrals Follow up with: Tyson Merida MD [Physician] - 2 Weeks (EKG, BMP, magnesium, CBC) Discharge Plan - Discharge Data Disposition: Disch To Home/Self Care Condition at Discharge: Stable Discharge Diet: heart healthy Activity: other (Post cath expectations) Hygiene: other (Post catheter) Weight Bearing at Discharge: other (Post cath expectations) Driving: other (Post cath expectations) Contact your physician if you experience:: fever over 101, Difficulty voiding, Redness or swelling, Nausea/Vomiting, Shortness of breath, Bleeding, pain uncontrolled by pain medications - Discharge Medications New Glimepiride [Amaryl] 4 mg PO BID tablet Isosorbide Mononitrate [Imdur] 30 mg PO DAILY #30 tablet Rosuvastatin [Crestor] 40 mg PO BEDTIME #30 tablet Sotalol [Betapace] 120 mg PO BID #60 tablet Ticagrelor [Brilinta] 90 mg PO BID #60 tablet Pantoprazole Tab [Protonix Tab] 40 mg PO DAILY #30 tablet Continue Ascorbic Acid [Vitamin C] 1,000 mg PO DAILY Amlodipine Besylate 5 mg PO DAILY DULoxetine [Cymbalta] 90 mg PO DAILY Potassium Gluconate [Potassium] 99 mg PO DAILY Benazepril [Lotensin] 10 mg PO DAILY tablet Aspirin EC Tab 81 mg PO DAILY Discontinued Pravastatin Sodium 20 mg PO BEDTIME Glimepiride 4 mg PO BID Apixaban [Eliquis] 5 mg PO BID tablet Sotalol [Betapace] 80 mg PO BID tablet Meloxicam [Meloxicam] 15 mg PO DAILY - Follow Up or Referral Follow Up: Tyson Merida MD [Physician] - 2 Weeks (EKG, BMP, magnesium, CBC) - Forms/Instructions Instructions: Left Heart Catheterization (DC), Heart Healthy Diet (GEN), Coronary Intravascular Stent Placement (DC) Additional Discharge Instructions: Please give patient Brilinta prescription card at discharge. Okay for patient to be discharged home. Dr. Linton has already seen patient. Exam - Constitutional Vitals: Period Temp Pulse Resp BP Sys/Nunes Pulse Ox Last 24 Hr 96.4 F-98.6 F 57-76 18-20 101-175/52-81 91-94 Exam: General: [Appears well with no apparent distress.] [Pleasant and cooperative. ] [Appears comfortable.] HEENT: [PERRL, normocephalic, atraumatic. Mucous membranes moist. No jaundice noted. Conjunctiva moist and clear, sclerae anicteric] Neck: No JVD/HJR, no thyromegaly or lymphadenopathy noted. No carotid bruit appreciated Cardiac: [Regular rate and rhythm.] [No murmur rub or gallop.] Lungs: [Clear to auscultation without accessory muscle use to assist the respiratory pattern.] Not requiring oxygen Abdomen: Soft, bowel sounds normoactive. Nontender and nondistended. No abdominal bruit or thrill noted. No masses noted. Musculoskeletal: No fluid collection. Decreased range of motion is noted. Extremities: Right groin soft, free of hematoma or bruit. No clubbing, cyanosis noted. [ No edema noted.] Upper extremity pulses 2+. Lower extremity pulses 2+. Capillary refill less than 3 seconds. Skin: No unusual lesions or rashes. No skin breakdown appreciated. Neuro: Awake, alert and oriented 3. Moves all extremities well without hemiparesis or paralysis. No essential tremor is appreciated. Discharge Results Procedures and tests throughout hospitalization: Pending Orders 07/05/17 04:00 BMP w/ Mg [Basic Metabolic Panel w/Mg] IN AM CBC [Comp Blood Count Auto Diff] IN AM Troponin,CKMB & Ck Total IN AM 07/06/17 04:00 BMP w/ Mg [Basic Metabolic Panel w/Mg] IN AM CBC [Comp Blood Count Auto Diff] IN AM Labs on day of discharge: Labs from last 24 hours 07/04/17 07/04/17 07/04/17 07:39 04:55 04:55 WBC 7.9 RBC 4.83 Hgb 15.2 Hct 44.9 MCV 93.0 MCH 32 MCHC 33.9 RDW 12.7 Plt Count 201 MPV 9.5 L Neut % (Auto) 67.6 Lymph % (Auto) 16.6 L [place] % (Auto) 12.3 Eos % (Auto) 2.3 Baso % (Auto) 0.4 Neut # (Auto) 5.4 Lymph # (Auto) 1.3 L [place] # (Auto) 1.0 H Eos # (Auto) 0.2 Baso # (Auto) 0.0 Immature Gran % 0.8 Nucleated RBC % 0.0 Immature Gran # 0.06 Nucleated RBCs # 0.00 Immature Plt Fraction 0.0 Sodium 140 Potassium 4.4 Chloride 103 Carbon Dioxide 32 Anion Gap 9.4 BUN 14 Creatinine 0.90 GFR Calculation 120 BUN/Creatinine Ratio 15.00 Glucose 101 POC Glucose 106 Calculated Osmolality 279.4 Calcium 9.2 Magnesium 2.3 Total Bilirubin AST ALT Alkaline Phosphatase Total Creatine Kinase CK-MB (CK-2) CK and CKMB Interp Troponin I Total Protein Albumin Globulin Albumin/Globulin Ratio Free T4 TSH 3rd Generation 07/04/17 07/03/17 07/03/17 04:55 23:31 21:40 WBC RBC Hgb Hct MCV MCH MCHC RDW Plt Count MPV Neut % (Auto) Lymph % (Auto) [place] % (Auto) Eos % (Auto) Baso % (Auto) Neut # (Auto) Lymph # (Auto) [place] # (Auto) Eos # (Auto) Baso # (Auto) Immature Gran % Nucleated RBC % Immature Gran # Nucleated RBCs # Immature Plt Fraction Sodium 140 Potassium 4.5 Chloride 103 Carbon Dioxide 32 Anion Gap 9.5 BUN 13 Creatinine 0.90 GFR Calculation 120 BUN/Creatinine Ratio 14.00 Glucose 100 POC Glucose 157 H Calculated Osmolality 278.4 Calcium 9.3 Magnesium Total Bilirubin 0.80 AST 31 ALT 21 Alkaline Phosphatase 62 Total Creatine Kinase 126 CK-MB (CK-2) 5.8 H CK and CKMB Interp 4.6 Troponin I 8.280 H Total Protein 6.7 Albumin 3.4 Globulin 3.3 Albumin/Globulin Ratio 1.0 L Free T4 TSH 3rd Generation 07/03/17 07/03/17 07/03/17 15:58 15:29 05:01 WBC RBC Hgb Hct MCV MCH MCHC RDW Plt Count MPV Neut % (Auto) Lymph % (Auto) [place] % (Auto) Eos % (Auto) Baso % (Auto) Neut # (Auto) Lymph # (Auto) [place] # (Auto) Eos # (Auto) Baso # (Auto) Immature Gran % Nucleated RBC % Immature Gran # Nucleated RBCs # Immature Plt Fraction Sodium Potassium Chloride Carbon Dioxide Anion Gap BUN Creatinine GFR Calculation BUN/Creatinine Ratio Glucose POC Glucose 100 Calculated Osmolality Calcium Magnesium Total Bilirubin AST ALT Alkaline Phosphatase Total Creatine Kinase 143 D CK-MB (CK-2) 9.8 H D CK and CKMB Interp 6.9 Troponin I 10.100 H Total Protein Albumin Globulin Albumin/Globulin Ratio Free T4 1.09 TSH 3rd Generation 1.510 - Imaging and Cardiology Cardiology Procedure: report reviewed by me Procedure: Chest x-ray: report reviewed by me DS: Provider Date of admission: 07/01/17 13:56 Primary care physician: Raza Browning DO Attending physician on admission: Maximino Linton MD Consults: 07/02/17 12:39 Consult to Cardiac Rehabilitation [CONS] Routine Reason for Cardiac Rehabilitation: Appt Out Pt Cardiac Rehab Consult Comment: ACS; stent Discharging clinician: Kaley Shipley NP Expected date of discharge: 07/04/17
[2017-07-04 12:00] VITALS: BP 115/60
== END 2017-07-04 13:00 | disposition home or self-care (01) | DRG 251 ==
LOC: N.TELEN 11:14
PROVIDERS: ADMIT Internal Medicine Cardiovascular Disease; ATTEND Internal Medicine Cardiovascular Disease

== ENCOUNTER 2018-04-07 08:32 | Inpatient (IN) ==
[2018-04-07] MEDS ORDERED: DILTIAZEM 50 MG/10 ML VIAL IV STA (09:04)
[2018-04-07] MEDS ORDERED: DILTIAZEM 100 MG VIAL.ADD IV ONE (09:11)
[2018-04-07] MEDS ORDERED: SODIUM CHLORIDE 0.9% 100 ML IV ONE (09:11)
[2018-04-07 09:32] LABS: Basophils % 0.6 % (0.0-0.8); Eosinophils # 0.2 10*3/uL (0.0-0.87); Eosinophils % 2.9 % (0.00-10.9); Hematocrit 43.5 VOL% (42.0-52.0); Hemoglobin 14.4 GM/DL (14.0-18.0); Immature Granulocytes % 0.3 %; Immature Granulocytes Absolute 0.02 #; Lymphocytes % 15.9 % (21.2-54.2); Mean Corpuscular HGB Conc 33.1 GM/DL (32-36); Mean Corpuscular Hemoglobin 31 PG (27-34); Mean Corpuscular Volume 93.8 FL (87-102); Mean Platelet Volume 9.4 FL (9.6-12.0); Monocytes # 0.7 10*3/uL (0.11-0.8); Monocytes % 11.4 % (1.7-12.7); Neutrophils # 4.3 10*3/uL (1.4-7.4); Neutrophils % 68.9 % (38.7-73.9); Platelet Count 195 T/CUMM (130-400); Red Blood Count 4.64 MC/CUMM (3.8-5.5); Red Cell Distribution Width 13.3 % (9.3-17.3); White Blood Count 6.3 T/CUMM (4-12)
[2018-04-07] MEDS: DILTIAZEM INJ 100 MG in SODIUM CHLORIDE 0.9% 100 ML IV SCH (09:45)
[2018-04-07] MEDS ORDERED: FUROSEMIDE 40 MG/4 ML VIAL IV STA (09:51)
[2018-04-07 10:04] LABS: Albumin 3.6 G/DL (3.4-5.0); Bilirubin,Total 0.6 MG/DL (0.2-1.0); Calcium 8.7 MG/DL (8.5-10.1); Total Protein 7.7 G/DL (6.4-8.3); Troponin I Only 0.042 NG/ML (0.00-0.045)
[2018-04-07 10:13] LABS: Osmolality,Calculated 273.8 MOS/KG (273-304)
[2018-04-07] MEDS ORDERED: MAGNESIUM SULF RIDER 2 GM in PREMIX 1 EACH IV PRN (12:10)
[2018-04-07] MEDS ORDERED: PROMETHAZINE 25 MG TABLET PO PRN (12:10)
[2018-04-07] MEDS ORDERED: MAGNESIUM SULF RIDER 4 GM in PREMIX 1 EACH IV PRN (12:10)
[2018-04-07] MEDS ORDERED: LACTULOSE 20 GM/30 ML UDCUP PO PRN (12:10)
[2018-04-07] MEDS ORDERED: BISACODYL 5 MG TABLET PO PRN (12:10)
[2018-04-07] MEDS ORDERED: guaiFENesin/DM ER 600-30 MG TABLET PO PRN (12:10)
[2018-04-07] MEDS ORDERED: ONDANSETRON 4 MG/2 ML VIAL IV PRN (12:10)
[2018-04-07] MEDS ORDERED: ACETAMINOPHEN 325 MG TABLET PO PRN (12:10)
[2018-04-07] MEDS ORDERED: diphenhydrAMINE CAP 25 MG CAPSULE PO PRN (12:10)
[2018-04-07] MEDS ORDERED: ZALEPLON 5 MG CAPSULE PO PRN (12:10)
[2018-04-07] MEDS ORDERED: DOCUSATE SODIUM 100 MG CAPSULE PO PRN (12:10)
[2018-04-07] MEDS ORDERED: ENOXAPARIN 40 MG/0.4 ML SYRINGE SUBCUT SCH (12:30)
[2018-04-07] MEDS ORDERED: DIGOXIN 0.5 MG/2 ML AMP IV STA (12:42)
[2018-04-07] MEDS: INSULIN REGULAR 100 UNIT/ML SUBCUT SCH ×2 (16:49→21:09)
[2018-04-07] MEDS: ISOSORBIDE MONONITRATE 30 MG TABLET PO SCH (18:20)
[2018-04-07] MEDS: ENOXAPARIN 120 MG/0.8 ML SYRINGE SUBCUT SCH (18:20)
[2018-04-07] MEDS ORDERED: MAGNESIUM HYDROXIDE SUSP 30 ML UDCUP PO PRN (18:56)
[2018-04-07] MEDS ORDERED: SOTALOL 80 MG TABLET PO SCH (19:00)
[2018-04-07] MEDS ORDERED: FUROSEMIDE 40 MG/4 ML VIAL ONE (19:50)
[2018-04-07] MEDS ORDERED: amLODIPine 5 MG TABLET PO SCH (21:00)
[2018-04-07] MEDS ORDERED: FUROSEMIDE 40 MG/4 ML VIAL IV SCH (21:00)
[2018-04-07] MEDS: BENAZEPRIL 10 MG TABLET PO SCH (21:07)
[2018-04-07] MEDS: DULoxetine 30 MG CAPSULE PO SCH (21:07)
[2018-04-07] MEDS: ASCORBIC ACID 500 MG TABLET PO SCH (21:08)
[2018-04-07] MEDS: GLIMEPIRIDE 4 MG TABLET PO SCH (21:09)
[2018-04-07] MEDS: CLOPIDOGREL 75 MG TABLET PO SCH (21:09)
[2018-04-07] MEDS: ASPIRIN EC 81 MG TABLET PO SCH (21:09)
[2018-04-07] MEDS: SOTALOL 80 MG TABLET PO SCH (21:10)
[2018-04-08 04:00] LABS: Apearance,Urine CLEAR (Clear); Bacteria,Urine Occasional /HPF (Few); Bilirubin,Urine Negative (Negative); Blood, Urine Negative (Negative); Glucose,Urine (UA) Negative (Negative); Ketones,Urine Negative (Negative); Mucus,Urine Occasional /LPF (Occasional); Nitrite,Urine Negative (Negative); Protein,Urine Negative; RBC,Urine <1 /HPF (0-4); Urine Color Straw (Yellow); Urine Specific Gravity 1.009 (1.001-1.035); Urine Urobilinogen < 2.0 EU/DL (0.2-1.0); WBC,Urine <1 /HPF (0-6)
[2018-04-08 05:43] LABS: Basophils # 0.1 10*3/uL (0.0-0.2); Basophils % 0.7 % (0.0-0.8); Eosinophils # 0.2 10*3/uL (0.0-0.87); Eosinophils % 3.6 % (0.00-10.9); Hematocrit 44.4 VOL% (42.0-52.0); Hemoglobin 14.4 GM/DL (14.0-18.0); Immature Granulocytes % 0.3 %; Immature Granulocytes Absolute 0.02 #; Lymphocytes # 1.3 10*3/uL (1.4-4.0); Lymphocytes % 19.8 % (21.2-54.2); Mean Corpuscular HGB Conc 32.4 GM/DL (32-36); Mean Corpuscular Hemoglobin 31 PG (27-34); Mean Corpuscular Volume 95.5 FL (87-102); Mean Platelet Volume 10.2 FL (9.6-12.0); Monocytes % 14.5 % (1.7-12.7); Neutrophils # 4.1 10*3/uL (1.4-7.4); Neutrophils % 61.1 % (38.7-73.9); Platelet Count 198 T/CUMM (130-400); Red Blood Count 4.65 MC/CUMM (3.8-5.5); Red Cell Distribution Width 13.3 % (9.3-17.3); White Blood Count 6.7 T/CUMM (4-12)
[2018-04-08] MEDS: ENOXAPARIN 120 MG/0.8 ML SYRINGE SUBCUT SCH ×2 (06:05→18:13)
[2018-04-08 06:06] LABS: Hypochromasia 1+; Platelet Estimate Adequate
[2018-04-08 06:17] LABS: Albumin 3.5 G/DL (3.4-5.0); Calcium 9.3 MG/DL (8.5-10.1); Osmolality,Calculated 275.7 MOS/KG (273-304); Potassium 4.1 MMOL/L (3.5-5.1); Risk Ratio 2.54; Total Protein 7.2 G/DL (6.4-8.3); VLDL CHOLESTEROL 17.2 MG/DL
[2018-04-08] MEDS: SOTALOL 80 MG TABLET PO SCH ×2 (08:32→21:43)
[2018-04-08] MEDS: ASCORBIC ACID 500 MG TABLET PO SCH ×2 (08:32→21:43)
[2018-04-08] MEDS: FUROSEMIDE 40 MG/4 ML VIAL IV SCH ×2 (08:32→17:13)
[2018-04-08] MEDS: POTASSIUM GLUCONATE 500 MG TABLET PO SCH (08:33)
[2018-04-08] MEDS: GLIMEPIRIDE 4 MG TABLET PO SCH ×2 (08:33→21:44)
[2018-04-08] MEDS: PANTOPRAZOLE 40 MG TABLET PO SCH (08:33)
[2018-04-08] MEDS: INSULIN REGULAR 100 UNIT/ML SUBCUT SCH ×4 (09:23→21:44)
[2018-04-08] MEDS ORDERED: SKIN HEALING OINT (AQUAPHOR) 50 GM TUBE TOP PRN (10:34)
[2018-04-08] MEDS: DILTIAZEM INJ 100 MG in SODIUM CHLORIDE 0.9% 100 ML IV SCH (11:00)
[2018-04-08] MEDS: ISOSORBIDE MONONITRATE 30 MG TABLET PO SCH (18:13)
[2018-04-08] MEDS: DULoxetine 30 MG CAPSULE PO SCH (21:42)
[2018-04-08] MEDS: CLOPIDOGREL 75 MG TABLET PO SCH (21:43)
[2018-04-08] MEDS: BENAZEPRIL 10 MG TABLET PO SCH (21:43)
[2018-04-08] MEDS: ASPIRIN EC 81 MG TABLET PO SCH (21:43)
[2018-04-08] MEDS: DILTIAZEM CD 180 MG CAPSULE PO SCH (21:43)
[2018-04-09] MEDS: ENOXAPARIN 120 MG/0.8 ML SYRINGE SUBCUT SCH (05:20)
[2018-04-09 05:43] LABS: Basophils % 0.5 % (0.0-0.8); Eosinophils # 0.3 10*3/uL (0.0-0.87); Eosinophils % 3.5 % (0.00-10.9); Hematocrit 43.7 VOL% (42.0-52.0); Hemoglobin 14.4 GM/DL (14.0-18.0); Immature Granulocytes % 0.4 %; Immature Granulocytes Absolute 0.03 #; Lymphocytes # 1.5 10*3/uL (1.4-4.0); Lymphocytes % 19.6 % (21.2-54.2); Mean Corpuscular Hemoglobin 31 PG (27-34); Mean Platelet Volume 10.1 FL (9.6-12.0); Monocytes # 1.1 10*3/uL (0.11-0.8); Monocytes % 14.3 % (1.7-12.7); Neutrophils # 4.6 10*3/uL (1.4-7.4); Neutrophils % 61.7 % (38.7-73.9); Platelet Count 202 T/CUMM (130-400); Red Cell Distribution Width 13.2 % (9.3-17.3); White Blood Count 7.5 T/CUMM (4-12)
[2018-04-09 06:16] LABS: Calcium 9.1 MG/DL (8.5-10.1); Osmolality,Calculated 275.7 MOS/KG (273-304); Potassium 3.4 MMOL/L (3.5-5.1)
[2018-04-09] MEDS: POTASSIUM CHLORIDE 20 MEQ TABLET PO PRN ×2 (06:25→10:03)
[2018-04-09] MEDS: INSULIN REGULAR 100 UNIT/ML SUBCUT SCH ×2 (07:47→16:41)
[2018-04-09 08:02] VITALS: BP 108/79
[2018-04-09] MEDS: ASCORBIC ACID 500 MG TABLET PO SCH (10:03)
[2018-04-09] MEDS: PANTOPRAZOLE 40 MG TABLET PO SCH (10:03)
[2018-04-09] MEDS: GLIMEPIRIDE 4 MG TABLET PO SCH (10:03)
[2018-04-09] MEDS: SOTALOL 80 MG TABLET PO SCH (10:03)
[2018-04-09] MEDS: POTASSIUM GLUCONATE 500 MG TABLET PO SCH (10:03)
[2018-04-09] MEDS: DILTIAZEM CD 180 MG CAPSULE PO SCH (10:03)
[2018-04-09] MEDS: FUROSEMIDE 40 MG/4 ML VIAL IV SCH (10:33)
[2018-04-09] MEDS ORDERED: APIXABAN 5 MG TABLET PO SCH (21:00)
[2018-04-10] MEDS ORDERED: FUROSEMIDE 40 MG TABLET PO SCH (09:00)
== END 2018-04-09 15:45 | disposition home or self-care (01) | DRG 308 ==
LOC: N.ED 08:32 → N.EDINP 12:10 → N.TELES 14:04
PROVIDERS: ADMIT Internal Medicine Interventional Cardiology; ATTEND Internal Medicine Interventional Cardiology

== ENCOUNTER 2022-09-22 10:16 | Inpatient (IN) ==
[2022-09-22] MEDS ORDERED: SODIUM CHLORIDE 0.9% 1,000 ML IV STA (10:36)
[2022-09-22 10:56] LABS: Basophils # 0.1 10*3/uL (0.0-0.2); Basophils % 0.4 % (0.0-0.8); Eosinophils % 0.1 % (0.00-10.9); Hemoglobin 17.3 GM/DL (14.0-18.0); Immature Granulocytes Absolute 0.14 #; Lymphocytes # 0.9 10*3/uL (1.4-4.0); Lymphocytes % 6.7 % (21.2-54.2); Mean Corpuscular HGB Conc 33.3 GM/DL (32-36); Mean Corpuscular Volume 93.9 FL (87-102); Mean Platelet Volume 9.9 FL (9.6-12.0); Monocytes # 1.3 10*3/uL (0.11-0.8); Neutrophils % 81.8 % (38.7-73.9); Platelet Count 218 T/CUMM (130-400); Red Blood Count 5.54 MC/CUMM (3.8-5.5); Red Cell Distribution Width 13.3 % (9.3-17.3); White Blood Count 13.4 T/CUMM (4-12)
[2022-09-22 11:05] LABS: INR 1.1; PT Patient Result 12.2 SECS (10.1-12.1); Partial Thromboplastin Time 23.1 SECS (23.7-32.9)
[2022-09-22 11:11] LABS: Bacteria,Urine Moderate /HPF (Few); Barbiturates Screen,Urine Negative (Negative); Benzodiazepines Screen,Urine Negative (Negative); Bilirubin,Urine Negative (Negative); Blood, Urine Moderate mg/dL (Negative); Cannabinoid Screen,Urine Negative (Negative); Glucose,Urine (UA) 50 mg/dL (Negative); Hyaline Casts,Urine 54 /LPF (0-3); Ketones,Urine 80 mg/dL (Negative); Mucus,Urine Moderate /LPF (Occasional); Nitrite,Urine Negative (Negative); Opiate Screen,Urine Negative (Negative); Phencyclidine Screen,Urine Negative (Negative); Protein,Urine 100 mg/dL (Negative); RBC,Urine 19 /HPF (0-4); Sperm,Urine Moderate /HPF (Negative); Urine Appearance CLOUDY (Clear); Urine Color Yellow (Yellow); Urine Specific Gravity 1.023 (1.001-1.035); Urine Urobilinogen < 2.0 eU/dL (<2.0)
[2022-09-22 11:43] LABS: Albumin 3.4 G/DL (3.4-5.0); Bilirubin,Total 0.8 MG/DL (0.20-1.00); Calcium 10.2 MG/DL (8.5-10.1); Osmolality,Calculated 300.7 MOS/KG (273-304); Total Protein 7.3 G/DL (6.4-8.2)
[2022-09-22] MEDS ORDERED: cefTRIAXone 1,000 MG in SODIUM CHLORIDE 0.9% 100 ML IV STA (11:44)
[2022-09-22] MEDS ORDERED: LACTATED RINGERS 1,000 ML IV ONE (11:46)
[2022-09-22] MEDS ORDERED: hydrALAZINE 20 MG/1 ML VIAL IV PRN (12:50)
[2022-09-22] MEDS ORDERED: ACETAMINOPHEN 325 MG TABLET PO PRN (12:50)
[2022-09-22] MEDS ORDERED: GLUCAGON 1 MG VIAL IM PRN (12:50)
[2022-09-22] MEDS ORDERED: DEXTROSE 10% 250 ML BAG IV PRN (12:50)
[2022-09-22] MEDS ORDERED: MECLIZINE 25 MG TABLET PO PRN (12:53)
[2022-09-22] MEDS ORDERED: NITROGLYCERIN SL 0.4 MG TABLET SL PRN (12:53)
[2022-09-22] MEDS: LACTATED RINGERS 1,000 ML IV SCH (14:08)
[2022-09-22] MEDS: METOPROLOL SUCCINATE XL 100 MG TABLET PO SCH (14:09)
[2022-09-22] MEDS: lisinopriL 2.5 MG TABLET PO SCH (14:09)
[2022-09-22] MEDS: INSULIN LISPRO 100 UNIT/ML SUBCUT SCH ×2 (16:47→20:55)
[2022-09-22] MEDS: APIXABAN 5 MG TABLET PO SCH ×2 (16:48→20:39)
[2022-09-22] MEDS: GABAPENTIN 300 MG CAPSULE PO SCH ×2 (16:49→20:39)
[2022-09-22] MEDS: GLIMEPIRIDE 4 MG TABLET PO SCH (20:39)
[2022-09-22] MEDS: ROSUVASTATIN 20 MG TABLET PO SCH (20:39)
[2022-09-22] MEDS: CLOPIDOGREL 75 MG TABLET PO SCH (20:39)
[2022-09-22] MEDS: OMEGA 3 ACID ETHYL ESTERS 1 GM CAPSULE PO SCH (20:39)
[2022-09-23] MEDS: LACTATED RINGERS 1,000 ML IV SCH ×3 (00:38→21:40)
[2022-09-23 05:49] LABS: Basophils # 0.1 10*3/uL (0.0-0.2); Basophils % 0.6 % (0.0-0.8); Eosinophils # 0.1 10*3/uL (0.0-0.87); Hematocrit 41.9 VOL% (42.0-52.0); Immature Granulocytes % 1.5 %; Immature Granulocytes Absolute 0.15 #; Lymphocytes # 1.3 10*3/uL (1.4-4.0); Lymphocytes % 12.9 % (21.2-54.2); Mean Corpuscular HGB Conc 33.4 GM/DL (32-36); Mean Corpuscular Volume 94.2 FL (87-102); Monocytes # 1.6 10*3/uL (0.11-0.8); Monocytes % 16.3 % (1.7-12.7); Neutrophils % 67.7 % (38.7-73.9); Platelet Count 176 T/CUMM (130-400); Red Blood Count 4.45 MC/CUMM (3.8-5.5); Red Cell Distribution Width 13.3 % (9.3-17.3); White Blood Count 10.1 T/CUMM (4-12)
[2022-09-23 06:16] LABS: Band Neutrophils 1 % (0-10); Eosinophils 1 % (0-10); Lymphocytes 14 % (20-55); Microcytosis Slight; Ovalocytes Slight; Platelet Estimate Adequate; Total Cells Counted 100
[2022-09-23 06:18] LABS: Albumin 2.4 G/DL (3.4-5.0); Bilirubin,Total 0.5 MG/DL (0.20-1.00); Calcium 9.3 MG/DL (8.5-10.1); Osmolality,Calculated 287.8 MOS/KG (273-304); Potassium 3.4 MMOL/L (3.5-5.1); Total Protein 5.7 G/DL (6.4-8.2)
[2022-09-23] MEDS ORDERED: POTASSIUM CHLORIDE 20 MEQ TABLET PO ONE (07:15)
[2022-09-23 07:18] LABS: Hepatitis B Core IgM Quant 0.13 Index; Hepatitis B Surface Ag Quant < 0.10 Index; Hepatitis B Surface Ag Result Non-Reactive (NonReactive); Hepatitis C Virus Ab Quant 0.07 Index; Hepatitis C Virus Ab Result Non-Reactive (NonReactive)
[2022-09-23] MEDS: OMEGA 3 ACID ETHYL ESTERS 1 GM CAPSULE PO SCH ×2 (08:34→20:45)
[2022-09-23] MEDS: INSULIN LISPRO 100 UNIT/ML SUBCUT SCH ×4 (08:34→21:39)
[2022-09-23] MEDS: GLIMEPIRIDE 4 MG TABLET PO SCH ×2 (08:34→20:45)
[2022-09-23] MEDS: APIXABAN 5 MG TABLET PO SCH ×2 (08:34→20:45)
[2022-09-23] MEDS: PANTOPRAZOLE 40 MG TABLET PO SCH (08:35)
[2022-09-23] MEDS: lisinopriL 2.5 MG TABLET PO SCH (08:35)
[2022-09-23] MEDS: METOPROLOL SUCCINATE XL 100 MG TABLET PO SCH (08:35)
[2022-09-23] MEDS: GABAPENTIN 300 MG CAPSULE PO SCH ×3 (08:35→20:45)
[2022-09-23] MEDS ORDERED: PANTOPRAZOLE 40 MG TABLET PO SCH (09:00)
[2022-09-23] MEDS ORDERED: ZINC OXIDE PASTE 113 GM TUBE TOP PRN (10:48)
[2022-09-23 19:52] LABS: Bilirubin,Urine Negative (Negative); Blood, Urine Large mg/dL (Negative); Glucose,Urine (UA) Negative (Negative); Ketones,Urine Negative (Negative); Mucus,Urine Occasional /LPF (Occasional); Nitrite,Urine Negative (Negative); Protein,Urine Negative (Negative); RBC,Urine 42 /HPF (0-4); Urine Appearance CLEAR (Clear); Urine Color Yellow (Yellow); Urine Urobilinogen < 2.0 eU/dL (<2.0)
[2022-09-23] MEDS: CLOPIDOGREL 75 MG TABLET PO SCH (20:45)
[2022-09-23] MEDS: ROSUVASTATIN 20 MG TABLET PO SCH (20:46)
[2022-09-24 06:25] LABS: Basophils # 0.1 10*3/uL (0.0-0.2); Eosinophils # 0.4 10*3/uL (0.0-0.87); Eosinophils % 4.3 % (0.00-10.9); Hematocrit 40.4 VOL% (42.0-52.0); Hemoglobin 13.2 GM/DL (14.0-18.0); Immature Granulocytes % 4.3 %; Immature Granulocytes Absolute 0.38 #; Lymphocytes # 1.2 10*3/uL (1.4-4.0); Lymphocytes % 13.9 % (21.2-54.2); Mean Corpuscular HGB Conc 32.7 GM/DL (32-36); Mean Corpuscular Volume 95.7 FL (87-102); Mean Platelet Volume 9.9 FL (9.6-12.0); Monocytes # 1.1 10*3/uL (0.11-0.8); Monocytes % 12.8 % (1.7-12.7); Neutrophils % 63.7 % (38.7-73.9); Platelet Count 170 T/CUMM (130-400); Red Blood Count 4.22 MC/CUMM (3.8-5.5); Red Cell Distribution Width 13.5 % (9.3-17.3); White Blood Count 8.8 T/CUMM (4-12)
[2022-09-24 06:46] LABS: Albumin 2.1 G/DL (3.4-5.0); Bilirubin,Total 0.4 MG/DL (0.20-1.00); Calcium 8.6 MG/DL (8.5-10.1); Osmolality,Calculated 278.3 MOS/KG (273-304); Potassium 3.5 MMOL/L (3.5-5.1); Total Protein 5.2 G/DL (6.4-8.2)
[2022-09-24] MEDS: INSULIN LISPRO 100 UNIT/ML SUBCUT SCH ×4 (09:50→23:34)
[2022-09-24] MEDS: APIXABAN 5 MG TABLET PO SCH ×2 (09:50→21:13)
[2022-09-24] MEDS: OMEGA 3 ACID ETHYL ESTERS 1 GM CAPSULE PO SCH ×2 (09:52→21:13)
[2022-09-24] MEDS: lisinopriL 2.5 MG TABLET PO SCH (09:52)
[2022-09-24] MEDS: GABAPENTIN 300 MG CAPSULE PO SCH ×3 (09:52→21:13)
[2022-09-24] MEDS: TAMSULOSIN 0.4 MG CAPSULE PO SCH ×2 (09:52→21:13)
[2022-09-24] MEDS: PANTOPRAZOLE 40 MG TABLET PO SCH (09:53)
[2022-09-24] MEDS: METOPROLOL SUCCINATE XL 100 MG TABLET PO SCH (09:53)
[2022-09-24] MEDS: CLOPIDOGREL 75 MG TABLET PO SCH (21:13)
[2022-09-24] MEDS: ROSUVASTATIN 20 MG TABLET PO SCH (21:13)
[2022-09-25] MEDS: INSULIN LISPRO 100 UNIT/ML SUBCUT SCH ×5 (08:38→20:22)
[2022-09-25] MEDS: OMEGA 3 ACID ETHYL ESTERS 1 GM CAPSULE PO SCH ×2 (09:27→20:07)
[2022-09-25] MEDS: TAMSULOSIN 0.4 MG CAPSULE PO SCH ×2 (09:27→20:07)
[2022-09-25] MEDS: lisinopriL 2.5 MG TABLET PO SCH (09:27)
[2022-09-25] MEDS: PANTOPRAZOLE 40 MG TABLET PO SCH (09:27)
[2022-09-25] MEDS: GABAPENTIN 300 MG CAPSULE PO SCH ×3 (09:27→20:07)
[2022-09-25] MEDS: APIXABAN 5 MG TABLET PO SCH ×2 (09:28→20:07)
[2022-09-25] MEDS: METOPROLOL SUCCINATE XL 100 MG TABLET PO SCH (09:28)
[2022-09-25] MEDS: LACTATED RINGERS 1,000 ML IV SCH (09:55)
[2022-09-25] MEDS: FLUTICASONE 50 MCG NASAL SPRAY 16 GM BOTTLE BOTH NARES SCH ×2 (12:37→20:08)
[2022-09-25] MEDS: CLOPIDOGREL 75 MG TABLET PO SCH (20:07)
[2022-09-25] MEDS: ROSUVASTATIN 20 MG TABLET PO SCH (20:07)
[2022-09-26 05:21] LABS: Basophils # 0.1 10*3/uL (0.0-0.2); Basophils % 0.8 % (0.0-0.8); Eosinophils # 0.3 10*3/uL (0.0-0.87); Eosinophils % 3.3 % (0.00-10.9); Hematocrit 42.9 VOL% (42.0-52.0); Hemoglobin 14.2 GM/DL (14.0-18.0); Immature Granulocytes % 2.7 %; Immature Granulocytes Absolute 0.23 #; Lymphocytes # 1.1 10*3/uL (1.4-4.0); Mean Corpuscular HGB Conc 33.1 GM/DL (32-36); Mean Corpuscular Volume 94.5 FL (87-102); Mean Platelet Volume 9.5 FL (9.6-12.0); Monocytes # 0.7 10*3/uL (0.11-0.8); Monocytes % 7.9 % (1.7-12.7); Neutrophils % 72.3 % (38.7-73.9); Platelet Count 202 T/CUMM (130-400); Red Blood Count 4.54 MC/CUMM (3.8-5.5); Red Cell Distribution Width 13.3 % (9.3-17.3); White Blood Count 8.5 T/CUMM (4-12)
[2022-09-26 05:36] LABS: Calcium 9.4 MG/DL (8.5-10.1); Osmolality,Calculated 276.7 MOS/KG (273-304); Potassium 4.1 MMOL/L (3.5-5.1)
[2022-09-26] MEDS: APIXABAN 5 MG TABLET PO SCH ×2 (11:00→20:26)
[2022-09-26] MEDS: GABAPENTIN 300 MG CAPSULE PO SCH ×3 (11:00→20:26)
[2022-09-26] MEDS: PANTOPRAZOLE 40 MG TABLET PO SCH (11:01)
[2022-09-26] MEDS: TAMSULOSIN 0.4 MG CAPSULE PO SCH ×2 (11:02→20:26)
[2022-09-26] MEDS: METOPROLOL SUCCINATE XL 100 MG TABLET PO SCH (11:03)
[2022-09-26] MEDS: OMEGA 3 ACID ETHYL ESTERS 1 GM CAPSULE PO SCH ×2 (11:03→20:26)
[2022-09-26] MEDS: INSULIN LISPRO 100 UNIT/ML SUBCUT SCH ×4 (11:05→20:27)
[2022-09-26] MEDS: FLUTICASONE 50 MCG NASAL SPRAY 16 GM BOTTLE BOTH NARES SCH ×2 (11:07→20:27)
[2022-09-26] MEDS: lisinopriL 2.5 MG TABLET PO SCH (11:13)
[2022-09-26] MEDS: CLOPIDOGREL 75 MG TABLET PO SCH (20:26)
[2022-09-26] MEDS: HYDROCORTISONE 1% OINT 28.35 GM TUBE TOP SCH (20:27)
[2022-09-26] MEDS: ROSUVASTATIN 20 MG TABLET PO SCH (20:27)
[2022-09-27 06:01] LABS: Basophils # 0.1 10*3/uL (0.0-0.2); Basophils % 0.7 % (0.0-0.8); Eosinophils # 0.3 10*3/uL (0.0-0.87); Eosinophils % 3.4 % (0.00-10.9); Hematocrit 40.6 VOL% (42.0-52.0); Hemoglobin 13.2 GM/DL (14.0-18.0); Immature Granulocytes % 1.3 %; Immature Granulocytes Absolute 0.11 #; Lymphocytes # 0.9 10*3/uL (1.4-4.0); Lymphocytes % 11.1 % (21.2-54.2); Mean Corpuscular HGB Conc 32.5 GM/DL (32-36); Mean Corpuscular Volume 95.5 FL (87-102); Mean Platelet Volume 9.5 FL (9.6-12.0); Monocytes # 0.7 10*3/uL (0.11-0.8); Monocytes % 8.6 % (1.7-12.7); Neutrophils % 74.9 % (38.7-73.9); Platelet Count 209 T/CUMM (130-400); Red Blood Count 4.25 MC/CUMM (3.8-5.5); Red Cell Distribution Width 13.3 % (9.3-17.3); White Blood Count 8.5 T/CUMM (4-12)
[2022-09-27 06:18] LABS: Osmolality,Calculated 274.8 MOS/KG (273-304); Potassium 4.3 MMOL/L (3.5-5.1)
[2022-09-27] MEDS: INSULIN LISPRO 100 UNIT/ML SUBCUT SCH ×4 (08:30→20:57)
[2022-09-27] MEDS: APIXABAN 5 MG TABLET PO SCH ×2 (08:36→20:43)
[2022-09-27] MEDS: OMEGA 3 ACID ETHYL ESTERS 1 GM CAPSULE PO SCH ×2 (08:37→20:43)
[2022-09-27] MEDS: PANTOPRAZOLE 40 MG TABLET PO SCH (08:37)
[2022-09-27] MEDS: TAMSULOSIN 0.4 MG CAPSULE PO SCH ×2 (08:37→20:43)
[2022-09-27] MEDS: lisinopriL 2.5 MG TABLET PO SCH (08:37)
[2022-09-27] MEDS: GABAPENTIN 300 MG CAPSULE PO SCH ×3 (08:37→20:43)
[2022-09-27] MEDS: METOPROLOL SUCCINATE XL 100 MG TABLET PO SCH (08:37)
[2022-09-27] MEDS: FLUTICASONE 50 MCG NASAL SPRAY 16 GM BOTTLE BOTH NARES SCH ×2 (09:36→21:07)
[2022-09-27] MEDS: HYDROCORTISONE 1% OINT 28.35 GM TUBE TOP SCH ×2 (09:36→21:07)
[2022-09-27] MEDS: ONDANSETRON 4 MG/2 ML VIAL IV PRN (11:23)
[2022-09-27 14:38] LABS: Mucus,Urine Occasional /LPF (Occasional); RBC,Urine 22 /HPF (0-4)
[2022-09-27 14:39] LABS: Bilirubin,Urine Negative (Negative); Blood, Urine Moderate mg/dL (Negative); Glucose,Urine (UA) Negative (Negative); Ketones,Urine Negative (Negative); Nitrite,Urine Negative (Negative); Protein,Urine Negative (Negative); Urine Appearance Clear (Clear); Urine Color Yellow (Yellow); Urine Specific Gravity 1.015 (1.001-1.035)
[2022-09-27] MEDS: ROSUVASTATIN 20 MG TABLET PO SCH (20:43)
[2022-09-27] MEDS: CLOPIDOGREL 75 MG TABLET PO SCH (20:43)
[2022-09-28] MEDS: INSULIN LISPRO 100 UNIT/ML SUBCUT SCH ×4 (07:54→21:47)
[2022-09-28] MEDS: METOPROLOL SUCCINATE XL 100 MG TABLET PO SCH (08:15)
[2022-09-28] MEDS: APIXABAN 5 MG TABLET PO SCH ×2 (08:17→21:48)
[2022-09-28] MEDS: GABAPENTIN 300 MG CAPSULE PO SCH ×3 (08:18→21:48)
[2022-09-28] MEDS: lisinopriL 2.5 MG TABLET PO SCH (08:18)
[2022-09-28] MEDS: OMEGA 3 ACID ETHYL ESTERS 1 GM CAPSULE PO SCH ×2 (08:19→21:48)
[2022-09-28] MEDS: PANTOPRAZOLE 40 MG TABLET PO SCH (08:19)
[2022-09-28] MEDS: TAMSULOSIN 0.4 MG CAPSULE PO SCH ×2 (08:20→21:48)
[2022-09-28] MEDS: FLUTICASONE 50 MCG NASAL SPRAY 16 GM BOTTLE BOTH NARES SCH ×2 (08:21→21:55)
[2022-09-28] MEDS: HYDROCORTISONE 1% OINT 28.35 GM TUBE TOP SCH ×2 (10:56→21:55)
[2022-09-28 11:20] LABS: % Iron Saturation 17.1 % (18-50)
[2022-09-28 11:40] LABS: Folate 18.92 NG/ML (5.38-24.0)
[2022-09-28] MEDS: CLOPIDOGREL 75 MG TABLET PO SCH (21:48)
[2022-09-28] MEDS: ROSUVASTATIN 20 MG TABLET PO SCH (21:48)
[2022-09-29 05:59] LABS: Basophils # 0.1 10*3/uL (0.0-0.2); Basophils % 0.7 % (0.0-0.8); Eosinophils # 0.3 10*3/uL (0.0-0.87); Eosinophils % 3.7 % (0.00-10.9); Hematocrit 43.3 VOL% (42.0-52.0); Hemoglobin 13.9 GM/DL (14.0-18.0); Immature Granulocytes Absolute 0.09 #; Lymphocytes # 0.9 10*3/uL (1.4-4.0); Lymphocytes % 9.3 % (21.2-54.2); Mean Corpuscular HGB Conc 32.1 GM/DL (32-36); Mean Corpuscular Volume 97.1 FL (87-102); Mean Platelet Volume 9.7 FL (9.6-12.0); Monocytes # 0.8 10*3/uL (0.11-0.8); Monocytes % 8.4 % (1.7-12.7); Neutrophils % 76.9 % (38.7-73.9); Platelet Count 221 T/CUMM (130-400); Red Blood Count 4.46 MC/CUMM (3.8-5.5); Red Cell Distribution Width 13.2 % (9.3-17.3); White Blood Count 9.1 T/CUMM (4-12)
[2022-09-29 06:24] LABS: Calcium 9.1 MG/DL (8.5-10.1); Osmolality,Calculated 270.1 MOS/KG (273-304); Potassium 4.2 MMOL/L (3.5-5.1)
[2022-09-29] MEDS: lisinopriL 2.5 MG TABLET PO SCH (09:33)
[2022-09-29] MEDS: PANTOPRAZOLE 40 MG TABLET PO SCH (09:34)
[2022-09-29] MEDS: TAMSULOSIN 0.4 MG CAPSULE PO SCH ×2 (09:34→20:57)
[2022-09-29] MEDS: METOPROLOL SUCCINATE XL 100 MG TABLET PO SCH (09:34)
[2022-09-29] MEDS: APIXABAN 5 MG TABLET PO SCH ×2 (09:34→20:57)
[2022-09-29] MEDS: INSULIN LISPRO 100 UNIT/ML SUBCUT SCH ×4 (09:34→22:02)
[2022-09-29] MEDS: OMEGA 3 ACID ETHYL ESTERS 1 GM CAPSULE PO SCH ×2 (09:34→20:57)
[2022-09-29] MEDS: GABAPENTIN 300 MG CAPSULE PO SCH ×3 (09:34→20:57)
[2022-09-29] MEDS: FLUTICASONE 50 MCG NASAL SPRAY 16 GM BOTTLE BOTH NARES SCH ×2 (09:37→22:01)
[2022-09-29] MEDS: ONDANSETRON 4 MG/2 ML VIAL IV PRN ×2 (11:46→16:19)
[2022-09-29] MEDS ORDERED: SODIUM CHLORIDE 0.9% 250 ML IV ONE (16:23)
[2022-09-29] MEDS: HYDROCORTISONE 1% OINT 28.35 GM TUBE TOP SCH ×2 (19:15→21:02)
[2022-09-29] MEDS: CLOPIDOGREL 75 MG TABLET PO SCH (20:57)
[2022-09-29] MEDS: ROSUVASTATIN 20 MG TABLET PO SCH (20:57)
[2022-09-30] MEDS: HYDROCORTISONE 1% OINT 28.35 GM TUBE TOP SCH ×2 (00:30→11:47)
[2022-09-30 04:18] VITALS: BP 108/49
[2022-09-30 06:34] LABS: Basophils # 0.1 10*3/uL (0.0-0.2); Basophils % 0.9 % (0.0-0.8); Eosinophils # 0.4 10*3/uL (0.0-0.87); Hematocrit 40.9 VOL% (42.0-52.0); Hemoglobin 13.1 GM/DL (14.0-18.0); Immature Granulocytes % 0.9 %; Immature Granulocytes Absolute 0.08 #; Lymphocytes # 1.1 10*3/uL (1.4-4.0); Lymphocytes % 11.3 % (21.2-54.2); Mean Corpuscular Volume 96.5 FL (87-102); Mean Platelet Volume 9.5 FL (9.6-12.0); Monocytes # 0.9 10*3/uL (0.11-0.8); Neutrophils % 72.9 % (38.7-73.9); Platelet Count 258 T/CUMM (130-400); Red Blood Count 4.24 MC/CUMM (3.8-5.5); Red Cell Distribution Width 13.3 % (9.3-17.3); White Blood Count 9.3 T/CUMM (4-12)
[2022-09-30 06:45] LABS: Calcium 9.2 MG/DL (8.5-10.1); Osmolality,Calculated 272.8 MOS/KG (273-304); Potassium 4.1 MMOL/L (3.5-5.1)
[2022-09-30] MEDS ORDERED: INFLUENZA VIRUS VACCINE 0.5 ML SYRINGE IM ONE (11:44)
[2022-09-30] MEDS: INSULIN LISPRO 100 UNIT/ML SUBCUT SCH ×2 (11:46→11:59)
[2022-09-30] MEDS: OMEGA 3 ACID ETHYL ESTERS 1 GM CAPSULE PO SCH (11:47)
[2022-09-30] MEDS: GABAPENTIN 300 MG CAPSULE PO SCH (11:47)
[2022-09-30] MEDS: TAMSULOSIN 0.4 MG CAPSULE PO SCH (11:47)
[2022-09-30] MEDS: FLUTICASONE 50 MCG NASAL SPRAY 16 GM BOTTLE BOTH NARES SCH (11:47)
[2022-09-30] MEDS: APIXABAN 5 MG TABLET PO SCH (11:47)
[2022-09-30] MEDS: METOPROLOL SUCCINATE XL 100 MG TABLET PO SCH (11:48)
[2022-09-30] MEDS: PANTOPRAZOLE 40 MG TABLET PO SCH (11:48)
[2022-10-01 14:52] LABS: Stone Analysis Interpretation SEE COMMENTS
== END 2022-09-30 13:08 | disposition swing bed (61) | DRG 551 ==
LOC: EDBD → EDUNIT# → N.EDINP 10:16 → N.ED 10:16 → SUATTDRO 12:50 → N.EDINP 18:51 → N.2W 19:17 → SUATTDRO 09-27 09:18
PROVIDERS: ADMIT Internal Medicine; ATTEND Internal Medicine

== ENCOUNTER 2022-11-11 14:37 | Inpatient (IN) ==
[2022-11-11] MEDS ORDERED: BISACODYL 5 MG TABLET PO PRN (16:28)
[2022-11-11] MEDS ORDERED: LACTULOSE 20 GM/30 ML UDCUP PO PRN (16:28)
[2022-11-11] MEDS ORDERED: ALBUTEROL 2.5 MG/3 ML NEB RESP TX PRN (16:28)
[2022-11-11] MEDS ORDERED: GLUCAGON 1 MG VIAL IM PRN (16:28)
[2022-11-11] MEDS ORDERED: hydrALAZINE 20 MG/1 ML VIAL IV PRN (16:28)
[2022-11-11] MEDS ORDERED: ACETAMINOPHEN 325 MG TABLET PO PRN (16:28)
[2022-11-11] MEDS ORDERED: ALUMINUM/MAGNES/SIMETH MAX STR 30 ML UDCUP PO PRN (16:28)
[2022-11-11] MEDS ORDERED: CALCIUM CARBONATE CHEW 500 MG TABLET PO PRN (16:28)
[2022-11-11] MEDS ORDERED: ONDANSETRON 4 MG/2 ML VIAL IV PRN (16:28)
[2022-11-11] MEDS ORDERED: SIMETHICONE CHEW 125 MG TABLET PO PRN (16:28)
[2022-11-11] MEDS ORDERED: DEXTROSE 10% 250 ML BAG IV PRN (16:28)
[2022-11-11] MEDS: INSULIN REGULAR 100 UNIT/ML SUBCUT SCH ×2 (17:21→21:43)
[2022-11-11 17:32] LABS: Basophils # 0.1 10*3/uL (0.0-0.2); Basophils % 0.6 % (0.0-0.8); Eosinophils # 0.2 10*3/uL (0.0-0.87); Eosinophils % 2.5 % (0.00-10.9); Hematocrit 37.9 VOL% (42.0-52.0); Hemoglobin 12.1 GM/DL (14.0-18.0); Immature Granulocytes % 1.1 %; Immature Granulocytes Absolute 0.09 #; Lymphocytes % 12.5 % (21.2-54.2); Mean Corpuscular HGB Conc 31.9 GM/DL (32-36); Mean Corpuscular Volume 94.8 FL (87-102); Mean Platelet Volume 8.8 FL (9.6-12.0); Monocytes # 0.7 10*3/uL (0.11-0.8); Monocytes % 8.5 % (1.7-12.7); Neutrophils % 74.8 % (38.7-73.9); Platelet Count 346 T/CUMM (130-400); White Blood Count 7.9 T/CUMM (4-12)
[2022-11-11 17:54] LABS: Albumin 2.6 G/DL (3.4-5.0); Bilirubin,Total 0.4 MG/DL (0.20-1.00); Calcium 8.9 MG/DL (8.5-10.1); Osmolality,Calculated 276.4 MOS/KG (273-304); Potassium 4.1 MMOL/L (3.5-5.1); Total Protein 6.5 G/DL (6.4-8.2)
[2022-11-11] MEDS: VANCOMYCIN INJ 1,750 MG in SODIUM CHLORIDE 0.9% 500 ML IV SCH (18:30)
[2022-11-11] MEDS: ROSUVASTATIN 20 MG TABLET PO SCH (20:44)
[2022-11-11] MEDS: TAMSULOSIN 0.4 MG CAPSULE PO SCH (20:44)
[2022-11-11] MEDS: GABAPENTIN 300 MG CAPSULE PO SCH (20:44)
[2022-11-11] MEDS: PIPERACILLIN/TAZOBACTAM 3,375 MG in SODIUM CHLORIDE 0.9% 100 ML IV SCH (20:44)
[2022-11-11] MEDS: CLINDAMYCIN INJ 600 MG/50 ML PREMIX IV SCH (23:44)
[2022-11-12] MEDS: PIPERACILLIN/TAZOBACTAM 3,375 MG in SODIUM CHLORIDE 0.9% 100 ML IV SCH ×3 (03:28→22:37)
[2022-11-12 06:16] LABS: Basophils # 0.1 10*3/uL (0.0-0.2); Basophils % 0.8 % (0.0-0.8); Eosinophils # 0.3 10*3/uL (0.0-0.87); Eosinophils % 3.8 % (0.00-10.9); Hematocrit 38.7 VOL% (42.0-52.0); Hemoglobin 12.3 GM/DL (14.0-18.0); Immature Granulocytes % 1.3 %; Lymphocytes % 13.2 % (21.2-54.2); Mean Corpuscular HGB Conc 31.8 GM/DL (32-36); Mean Corpuscular Volume 96.5 FL (87-102); Mean Platelet Volume 8.9 FL (9.6-12.0); Monocytes # 0.6 10*3/uL (0.11-0.8); Monocytes % 8.5 % (1.7-12.7); Neutrophils % 72.4 % (38.7-73.9); Platelet Count 338 T/CUMM (130-400); Red Blood Count 4.01 MC/CUMM (3.8-5.5); Red Cell Distribution Width 14.2 % (9.3-17.3); White Blood Count 7.6 T/CUMM (4-12)
[2022-11-12 06:33] LABS: Calcium 9.1 MG/DL (8.5-10.1); Osmolality,Calculated 275.4 MOS/KG (273-304); Potassium 3.9 MMOL/L (3.5-5.1)
[2022-11-12] MEDS: CLINDAMYCIN INJ 600 MG/50 ML PREMIX IV SCH ×2 (08:57→16:42)
[2022-11-12] MEDS: INSULIN REGULAR 100 UNIT/ML SUBCUT SCH ×4 (09:00→21:32)
[2022-11-12] MEDS ORDERED: GLUCAGON 1 MG VIAL IM PRN (09:54)
[2022-11-12] MEDS ORDERED: DEXTROSE 50% 25 GM/50 ML VIAL IV PRN (09:54)
[2022-11-12] MEDS: FUROSEMIDE 40 MG TABLET PO SCH (10:08)
[2022-11-12] MEDS: METOPROLOL SUCCINATE XL 100 MG TABLET PO SCH (10:08)
[2022-11-12] MEDS: TAMSULOSIN 0.4 MG CAPSULE PO SCH ×2 (10:08→21:32)
[2022-11-12] MEDS: lisinopriL 5 MG TABLET PO SCH (10:09)
[2022-11-12] MEDS: PANTOPRAZOLE 40 MG TABLET PO SCH (10:09)
[2022-11-12] MEDS: GABAPENTIN 300 MG CAPSULE PO SCH ×3 (10:09→21:32)
[2022-11-12] MEDS: SODIUM HYPOCHLORITE 0.25% IRRIG 473 ML BOTTLE TOP SCH (10:10)
[2022-11-12] MEDS: VANCOMYCIN INJ 1,750 MG in SODIUM CHLORIDE 0.9% 500 ML IV SCH (13:05)
[2022-11-12] MEDS: APIXABAN 5 MG TABLET PO SCH (21:31)
[2022-11-12] MEDS: CLOPIDOGREL 75 MG TABLET PO SCH (21:31)
[2022-11-12] MEDS: ROSUVASTATIN 20 MG TABLET PO SCH (21:32)
[2022-11-13] MEDS: CLINDAMYCIN INJ 600 MG/50 ML PREMIX IV SCH ×2 (01:25→10:00)
[2022-11-13] MEDS: PIPERACILLIN/TAZOBACTAM 3,375 MG in SODIUM CHLORIDE 0.9% 100 ML IV SCH ×2 (05:36→15:37)
[2022-11-13] MEDS: VANCOMYCIN INJ 1,750 MG in SODIUM CHLORIDE 0.9% 500 ML IV SCH (05:40)
[2022-11-13 07:01] LABS: Basophils # 0.1 10*3/uL (0.0-0.2); Basophils % 0.8 % (0.0-0.8); Eosinophils # 0.4 10*3/uL (0.0-0.87); Eosinophils % 5.7 % (0.00-10.9); Hematocrit 36.4 VOL% (42.0-52.0); Hemoglobin 11.5 GM/DL (14.0-18.0); Immature Granulocytes % 1.5 %; Lymphocytes # 1.1 10*3/uL (1.4-4.0); Lymphocytes % 16.1 % (21.2-54.2); Mean Corpuscular HGB Conc 31.6 GM/DL (32-36); Mean Corpuscular Volume 96.6 FL (87-102); Mean Platelet Volume 8.6 FL (9.6-12.0); Monocytes # 0.7 10*3/uL (0.11-0.8); Monocytes % 9.9 % (1.7-12.7); Platelet Count 314 T/CUMM (130-400); Red Blood Count 3.77 MC/CUMM (3.8-5.5); Red Cell Distribution Width 14.5 % (9.3-17.3); White Blood Count 6.7 T/CUMM (4-12)
[2022-11-13 07:24] LABS: Calcium 8.4 MG/DL (8.5-10.1); Osmolality,Calculated 279.3 MOS/KG (273-304); Potassium 3.7 MMOL/L (3.5-5.1)
[2022-11-13] MEDS: lisinopriL 5 MG TABLET PO SCH (08:07)
[2022-11-13] MEDS: TAMSULOSIN 0.4 MG CAPSULE PO SCH ×2 (08:07→22:04)
[2022-11-13] MEDS: GABAPENTIN 300 MG CAPSULE PO SCH ×3 (08:08→22:04)
[2022-11-13] MEDS: PANTOPRAZOLE 40 MG TABLET PO SCH (08:08)
[2022-11-13] MEDS: APIXABAN 5 MG TABLET PO SCH ×2 (08:08→22:04)
[2022-11-13] MEDS: FUROSEMIDE 40 MG TABLET PO SCH (08:08)
[2022-11-13] MEDS: METOPROLOL SUCCINATE XL 100 MG TABLET PO SCH (08:08)
[2022-11-13] MEDS: SODIUM HYPOCHLORITE 0.25% IRRIG 473 ML BOTTLE TOP SCH (08:09)
[2022-11-13] MEDS: INSULIN REGULAR 100 UNIT/ML SUBCUT SCH ×4 (08:36→22:03)
[2022-11-13] MEDS ORDERED: LEVOFLOXACIN INJ 500 MG/100 ML PREMIX IV SCH (15:00)
[2022-11-13] MEDS: CLOPIDOGREL 75 MG TABLET PO SCH (22:04)
[2022-11-13] MEDS: BACILLUS COAGULANS CAPLET PO SCH (22:05)
[2022-11-13] MEDS: ROSUVASTATIN 20 MG TABLET PO SCH (22:05)
[2022-11-14 06:14] LABS: Basophils # 0.1 10*3/uL (0.0-0.2); Basophils % 0.9 % (0.0-0.8); Eosinophils # 0.4 10*3/uL (0.0-0.87); Eosinophils % 5.3 % (0.00-10.9); Hemoglobin 11.7 GM/DL (14.0-18.0); Immature Granulocytes % 1.9 %; Immature Granulocytes Absolute 0.13 #; Lymphocytes # 1.2 10*3/uL (1.4-4.0); Lymphocytes % 17.3 % (21.2-54.2); Mean Corpuscular HGB Conc 31.6 GM/DL (32-36); Mean Corpuscular Volume 95.4 FL (87-102); Mean Platelet Volume 8.5 FL (9.6-12.0); Monocytes # 0.7 10*3/uL (0.11-0.8); Monocytes % 9.7 % (1.7-12.7); Neutrophils % 64.9 % (38.7-73.9); Platelet Count 334 T/CUMM (130-400); Red Blood Count 3.88 MC/CUMM (3.8-5.5); Red Cell Distribution Width 14.6 % (9.3-17.3); White Blood Count 6.8 T/CUMM (4-12)
[2022-11-14 06:34] LABS: Calcium 8.6 MG/DL (8.5-10.1); Osmolality,Calculated 279.3 MOS/KG (273-304); Potassium 3.7 MMOL/L (3.5-5.1)
[2022-11-14 07:42] VITALS: BP 117/67
[2022-11-14] MEDS: TAMSULOSIN 0.4 MG CAPSULE PO SCH (09:11)
[2022-11-14] MEDS: PANTOPRAZOLE 40 MG TABLET PO SCH (09:11)
[2022-11-14] MEDS: APIXABAN 5 MG TABLET PO SCH (09:11)
[2022-11-14] MEDS: GABAPENTIN 300 MG CAPSULE PO SCH (09:11)
[2022-11-14] MEDS: INSULIN REGULAR 100 UNIT/ML SUBCUT SCH ×2 (09:11→12:12)
[2022-11-14] MEDS: METOPROLOL SUCCINATE XL 100 MG TABLET PO SCH (09:11)
[2022-11-14] MEDS: FUROSEMIDE 40 MG TABLET PO SCH (09:11)
[2022-11-14] MEDS: lisinopriL 5 MG TABLET PO SCH (09:11)
[2022-11-14] MEDS: BACILLUS COAGULANS CAPLET PO SCH (09:11)
[2022-11-14] MEDS: SODIUM HYPOCHLORITE 0.25% IRRIG 473 ML BOTTLE TOP SCH (12:12)
[2022-11-15] MEDS ORDERED: ZINC GLUCONATE 50 MG TABLET PO SCH (09:00)
== END 2022-11-14 13:20 | disposition home health service (06) | DRG 602 ==
LOC: N.3E → SUATTDRO 15:59
PROVIDERS: ADMIT Internal Medicine; ATTEND Hospitalist